=== PATIENT | female | born 1945 | race Caucasian/White ===

== ENCOUNTER 2020-12-21 12:59 | Outpatient (CLI) | payer OTHER, MEDICARE, SELFPAY | END 2020-12-21 13:00 | disposition home or self-care (01) | LOC: ANHCOVIDVC 13:00 | PROVIDERS: PCP Family Medicine | DX: Z23 Encounter for immunization (principal) | CPT/HCPCS: 0001A; 91300 ==

== ENCOUNTER 2021-01-11 13:03 | Outpatient (CLI) | payer OTHER, MEDICARE, SELFPAY | END 2021-01-11 13:04 | disposition home or self-care (01) | LOC: ANHCOVIDVC 13:03 | PROVIDERS: PCP Family Medicine | DX: Z23 Encounter for immunization (principal) | CPT/HCPCS: 0002A; 91300 ==

== ENCOUNTER 2021-04-23 01:02 | Day surgery (SDC) | payer OTHER, SELFPAY ==
[2021-04-02 12:14] VITALS: BMI 31.9
[2021-04-23 08:17] VITALS: BP 154/83; PULSE 64; RESP 20; TEMP 36.4; O2SAT 99; BMI 32.5
--- NOTE | 2021-04-23 08:22 | WPDANESEPPF ---
Anes - Initial Pre Proc Eval Procedure: Operation Date: 04/23/21 09:00 Proposed Procedures p Esophagogastroduodenoscopy - Jason Servin MD Date/Time: 04/23/21 08:22 Surgeon: Jason Servin MD Pre Op Diagnosis: eipgastric pain Patient Data Age: 75 Gender: F Height: 1.6 m Weight: 83.2 kg Last Vital Signs Temp 36.4 C L 04/23/21 08:17 Pulse 64 04/23/21 08:17 Resp 20 04/23/21 08:17 BP 154/83 H 04/23/21 08:17 Pulse Ox 99 04/23/21 08:17 Allergies Allergy/AdvReac Type Severity Reaction Status Date / Time No Known Allergies Allergy Mild Verified 04/23/21 08:09 Home Medications Medication Instructions Recorded Confirmed Type budesonide-formoterol HFA 160 2 puff INHALATION Q12H 09/23/19 04/03/21 History mcg-4.5 mcg/actuation aerosol inhaler ipratropium 0.5 mg-albuterol 3 mg 3 ml INHALATION Q6H PRN 09/23/19 04/03/21 History (2.5 mg base)/3 mL nebulization soln albuterol sulfate 90 mcg/actuation 1 inhalation INHALATION Q4H PRN 02/23/20 04/03/21 Rx aerosol inhaler #8.5 gm losartan 100 mg tablet 100 mg PO DAILY #90 tablet 11/27/20 04/03/21 Rx chlorthalidone 25 mg tablet See Rx Instructions .ROUTE 12/01/20 04/03/21 Rx .COMPLEX #45 tablet levothyroxine 75 mcg tablet See Rx Instructions .ROUTE 02/05/21 04/03/21 Rx .COMPLEX #90 tablet pantoprazole 20 mg tablet,delayed 20 mg PO QAM #90 tablet 02/21/21 04/03/21 Rx release citalopram [Celexa] 40 mg PO DAILY 04/02/21 04/03/21 History Patient hx anesthesia problems: none Family hx anesthesia problems: none PMFSH Past Medical History Medical History Mixed hyperlipidemia Surgical History Surgical History (Updated 04/23/21 @ 08:22 by Jovanny White MD) History of cholecystectomy History of esophagogastroduodenoscopy (EGD) Family History Family History Father Hypertension Family history of chronic obstructive pulmonary disease Family history of coronary artery disease Family history of cardiovascular disease Family history of emphysema Mother Hypertension Family history of chronic obstructive pulmonary disease Family history of coronary artery disease Social History Social History Smoking status: Never smoker Second hand tobacco smoke exposure: No Alcohol intake: never Substance use: never Substance use type: does not use Living arrangements: with family Gender identity (if verbalized by the patient): Female Spiritual care concerns: No Anes - Eval Final PreProcedure Day of Procedure 04/23/21 08:22 Patient weight: obese Heart: regular rate and rhythm Lungs: clear to auscultation Airway: Mallampati scale class II Neurological: alert and oriented Last oral intake: >/= 8 hours ASA classification: III Emergent: no Anesthetic plan: proceed Anesthesia type and monitoring: general GIVS and standard monitoring Informed Consent: The patient's anesthetic plan and its attendant risks and benefits were discussed with the patient/family/POA. Questions were solicited and answers provided to the satisfaction of the patient/family/POA.
[2021-04-23] MEDS: LACTATED RINGERS 1,000 ML 150 ML IV CONT (08:43)
--- NOTE | 2021-04-23 08:54 | WPDGICN ---
Assessment and Plan Assessment and plan (1) Epigastric abdominal pain: Code(s): R10.13 - Epigastric pain Status: Acute Assessment and Plan: Patient presents today because of epigastric pain. Review of records reveals a gastric ulcer in 2018. Plan is for EGD to assess more thoroughly. Patient will be maintained on pantoprazole in the interval time period patient also reports a history of hiatal hernia and Schatzki's ring although has no difficulty with substernal pain and no dysphagia. (2) GERD (gastroesophageal reflux disease): Code(s): K21.9 - Gastro-esophageal reflux disease without esophagitis Status: Acute Assessment and Plan: Patient is felt to have underlying acid reflux disease. Long-term anti-reflux measures and pantoprazole suggested. Further recommendations may be given after endoscopy. (3) Constipation: Code(s): K59.00 - Constipation, unspecified Status: Acute Assessment and Plan: Patient reports difficulty with her bowel habits. CT colonography several years ago was unremarkable. Plan is for stool softeners and or laxatives because she states this makes her epigastric pain improved. Perhaps milk a magnesia twice a week in daily Metamucil may be of some benefit. GI Consult Note Consult date/time: 04/23/21 08:54 HPI: Ariane Quick is a 75 year old female Presents because a complains of epigastric pain. Patient states for several years at least 3 years she complains of epigastric bloating and pressure. She has been maintained on pantoprazole with no change in symptoms. She states symptoms do improve on taking milk of magnesia. She states that she tends to be constipated. Milk of magnesia helps her have a bowel movement. This tends to improve the pressure. Previously followed by Dr. Corral. Review of old records reveals that she had a gastric ulcer in 2019. She has had colonoscopy in [address] colonography in 2018 was unremarkable. Patient states that colonoscopy was difficult because of scar tissue after prior open cholecystectomy. Patient denies any blood in her stools. She denies any weight loss. She denies any burning with her epigastric pain. She has no difficulty swallowing. She reports in the past she was told she had a hiatal hernia and Schatzki's ring. Family history is noncontributory. Because of ongoing epigastric pain an EGD is requested. Review of Systems Review of Systems: All systems reviewed & are unremarkable except as noted in HPI and below PMFSH Past Medical History Medical History (Updated 04/23/21 @ 08:56 by Jason Servin MD) Mixed hyperlipidemia Surgical History Surgical History (Updated 04/23/21 @ 08:22 by Jovanny White MD) History of cholecystectomy History of esophagogastroduodenoscopy (EGD) Family History Family History Father Hypertension Family history of chronic obstructive pulmonary disease Family history of coronary artery disease Family history of cardiovascular disease Family history of emphysema Mother Hypertension Family history of chronic obstructive pulmonary disease Family history of coronary artery disease Social History Social History Smoking status: Never smoker Second hand tobacco smoke exposure: No Alcohol intake: never Substance use: never Substance use type: does not use Living arrangements: with family Gender identity (if verbalized by the patient): Female Spiritual care concerns: No Meds Home Medications and Allergies Home Medications Medication Instructions Recorded Confirmed Type budesonide-formoterol HFA 160 2 puff INHALATION Q12H 09/23/19 04/03/21 History mcg-4.5 mcg/actuation aerosol inhaler ipratropium 0.5 mg-albuterol 3 mg 3 ml INHALATION Q6H PRN 09/23/19 04/03/21 History
[2021-04-23] MEDS: BENZOCAINE (*SP) 60 ML SPRAY CAN (HURRICAINE) 1 SPRAY MUCOUS MEM (09:05)
[2021-04-23 09:17] VITALS: BP 131/73; PULSE 60; RESP 18; O2SAT 96
[2021-04-23 09:27] VITALS: BP 136/81; PULSE 62; RESP 18; O2SAT 97
[2021-04-23 09:37] VITALS: BP 149/94; PULSE 64; RESP 18; O2SAT 98
== END 2021-04-23 09:41 | disposition home or self-care (01) ==
PROVIDERS: PCP Family Medicine; Visit Provider Internal Medicine Gastroenterology
PROC: 0DJ08ZZ Inspection of Upper Intestinal Tract, Via Natural or Artificial Opening Endoscopic (ICD-10-PCS; CPT 43235; principal; 2021-04-23 09:00)
DX: R10.13 Epigastric pain (principal); K44.9 Diaphragmatic hernia without obstruction or gangrene; K21.9 Gastro-esophageal reflux disease without esophagitis; K59.00 Constipation, unspecified; E78.2 Mixed hyperlipidemia; E03.9 Hypothyroidism, unspecified; Z79.51 Long term (current) use of inhaled steroids; E66.9 Obesity, unspecified; Z68.32 Body mass index [BMI] 32.0-32.9, adult
CPT/HCPCS: 43239; 87081; J2704; J7120

== ENCOUNTER 2022-01-07 07:05 | Outpatient (CLI) | payer OTHER, SELFPAY ==
--- NOTE | ~2022-01-07 | MM_ITS ---
EXAMINATION: MM screening [facility] w [facility] HISTORY: Screening mammogram TECHNIQUE: Craniocaudal and mediolateral oblique 3-D tomosynthesis images were obtained and synthetic 2-D images were generated. CAD analysis was submitted and interpreted. COMPARISON: 10/01/2019, 05/02/2017 BREAST PARENCHYMAL COMPOSITION: The breasts are almost entirely fatty. FINDINGS: There is no suspicious mass, calcification, or architectural distortion to suggest malignan cy in either breast. There has been no suspicious interval change. IMPRESSION: 1. No mammographic evidence of malignancy. 2. Recommend routine screening mammography in one year. BI-RADS Category 1: Negative Reviewed, dictated and finalized at location A.
== END 2022-01-07 07:06 | disposition home or self-care (01) ==
PROVIDERS: PCP Family Medicine; Visit Provider Family Medicine
DX: Z12.31 Encounter for screening mammogram for malignant neoplasm of breast (principal)
CPT/HCPCS: 77063; 77067

== ENCOUNTER 2023-08-27 08:34 | Outpatient (CLI) | payer OTHER, SELFPAY ==
--- NOTE | ~2023-08-27 | MM_ITS ---
EXAMINATION: MM screening [facility] BI w erlin HISTORY: Screening mammogram TECHNIQUE: Craniocaudal and mediolateral oblique 3-D tomosynthesis images were obtained and synthetic 2-D images were generated. CAD analysis was submitted and interpreted. COMPARISON: 01/07/2022, 10/01/2019, 05/02/2017 BREAST PARENCHYMAL COMPOSITION: The breasts are almost entirely fatty. FINDINGS: No suspicious mass, calcification, or architectural distortion are identified in either kiana ast to suggest malignancy. There has been no suspicious interval change. IMPRESSION: 1. No mammographic evidence of malignancy. 2. Recommend routine screening mammography in one year. BI-RADS Category 1: Negative Reviewed, dictated and finalized at location A. [facility] COURT CLERK
== END 2023-08-27 08:35 | disposition home or self-care (01) ==
LOC: ANHIMG 08:37
PROVIDERS: PCP Family Medicine; Visit Provider Family Medicine
DX: Z12.31 Encounter for screening mammogram for malignant neoplasm of breast (principal)
CPT/HCPCS: 77063; 77067

== ENCOUNTER 2024-08-18 10:13 | Outpatient (CLI) | payer OTHER, SELFPAY ==
[2024-08-18 11:17] LABS: Influenza A QL RT-PCR Negative (Negative); Influenza B QL RT-PCR Negative (Negative); RSV RNA, RT-PCR Negative (Negative); SARS-CoV-2 RNA PCR Negative (Negative)
== END 2024-08-18 10:14 | disposition home or self-care (01) ==
LOC: ANHLAB 10:15
PROVIDERS: PCP Family Medicine; Visit Provider Family Medicine
DX: J84.9 Interstitial pulmonary disease, unspecified (principal); Z20.822 Contact with and (suspected) exposure to COVID-19
CPT/HCPCS: 87637

== ENCOUNTER 2024-08-19 16:40 | Outpatient (CLI) | payer OTHER, SELFPAY ==
--- NOTE | ~2024-08-19 | XR_ITS ---
XR chest 2V 08/19/2024 17:01 Indication: Cough Procedure: 2 view chest Comparison: Comparison to multiple prior studies sequentially, with oldest reviewed study dated 05/11. Findings: There is been progression of coarse reticular opacities bilaterally primarily involving the periphery, consistent with chronic interstitial fibrosis. No pleural effusion. No acute focal pneumo jorge, edema or effusion. There is apical pleural thickening. Impression: 1: Interval progression of chronic interstitial fibrosis. Reviewed, dictated and finalized at location B. [employer] Impression: 1: Interval progression of chronic interstitial fibrosis.
== END 2024-08-19 16:41 | disposition home or self-care (01) ==
PROVIDERS: PCP Family Medicine; Visit Provider Physician Assistant Medical
DX: J84.9 Interstitial pulmonary disease, unspecified (principal); J06.9 Acute upper respiratory infection, unspecified
CPT/HCPCS: 71046

== ENCOUNTER 2024-10-13 09:27 | Emergency (ER) | payer OTHER, SELFPAY ==
--- OUTSIDE RECORDS SUMMARY | 2024-10-20 04:48 | XMS_ITS | Clinical Summary ---
Author Organization [facility] Care Team Providers Care Deputy Sheriff K9 Handler Name Role Phone Unavailable Primary Care Provider Unavailabl e Social History Tobacco Use Types Packs/Day Years Used Date Smoking Tobacco: Never Assessed Comments Unknown Sex and Gender Information Value Date Recorded Sex Assigned at Not on file Legal Sex Female 7:34 PM CDT Gender Identity Not on file Sexual Orientation Not on file Plan of Treatment Not on file
--- OUTSIDE RECORDS SUMMARY | 2024-10-20 04:48 | XMS_ITS | Continuity of Care Document ---
Author Organization [facility] Address [address] [place] [address] [place] [address] Phone Care Team Providers Care Vp Talent Management Name Role Phone Samantha Horton Unavailable Unavailable Procedures Procedure Date Office/outpatient Visit, Est Office/outpatient Visit, Est Eye Exam Established Pt Eye Exam Established Pt Office/outpatient Visit, Est Office/outpatient Visit, Est Eye Exam, New Patient Advance Directives Directive Yes / No Effective Date File Name No Information Encounters Encounter Description Practice Location Reason(s) For Visit Diagnoses Date Provider Providers Copied on Encounter [place]pat [place] [facility] [place] [address] [place] [address] [address], [place], [place], [id number], [place] tel:[phone] [facility] No Information 0-201 0 Sol Denise [address] , [address], [place], [place], [facility], [place]. tel:[phone] Office/outpat ient Visit, [facility], [address] [place] [address] [address], [place], [place], [id number], [place] tel:[phone] [facility] [place] No Information 7-201 0 Sol Denise [address] , [address], [place], [address], [place]. tel:[phone] [facility], [address] [place] [address] [address], [place], [place], [id number], [place] tel:[phone] [facility] No Information May-2 0-201 0 Horton Samantha. [address], [place], [address], [place]. tel:[phone] [facility], [address], [place], [place], [id number], [place] tel:[phone] [facility] No Information May-1 3-201 0 Horton Samantha. [address], [place], [address], [place]. tel:[phone] Referring Provider: Davon Fagan MD, [address], [place], [place], [facility]. tel:[phone] Office/outpat ient Visit, [facility], [id number] [place] [address] [address], [place], [place], [id number], [place] tel:[phone] [facility] No Information Apr-2 1-200 8 Krishnasamy Brennan. [address] [facility] [address], [place], [place], [facility], [place]. tel:[phone] Office/outpat ient Visit, [facility], [id number] [place] [address] [address], [place], [place], [id number], [place] tel:[phone] [facility] No Information Mar-3 1-200 8 Krishnasamy Brennan. [address] [facility] [address], [place], [place], [facility], [place]. tel:[phone] [facility], [address], [place], [place], [id number], [place] tel:[phone] [facility] No Information Mar-1 0-200 8 Krishnasamy Brennan. [address] [facility] [address], [place], [place], [facility], [place]. tel:[phone] Family History Family Member Type Diagnosis Age At Onset No Information Payers Payer name Insurance type Covered democrat ID Authoriza tibrennon(s) [employer] Claims [id number] Written Refer ral Social History Type Description Quantity Date Captured Comments Sex Female Smoking Status No Information Chief Complaint And Reason For Visit No Information Reason For Referral Reason For Referral No Information History Of Present Illness Encounter Date Complaint History Of Prese nt Illness No Information Functional Status Date Functional Assessmen t No Information Instructions Date Instruction Additional Infor mation No Information Assessments Type Assessment Date No Information Patient Care Teams Name Effective Dates (start - stop) Status Members No Information
--- OUTSIDE RECORDS SUMMARY | 2024-10-20 04:48 | XMS_ITS ---
Author Organization [facility] Address [address] [facility] [address] [place] [address] Care Team Providers Care Pickling Grader Name Role Phone Davon Fagan MD Primary Care Provider UnavailMartha Byrd Unavailable [phone] Natalie Kim Unavailable [phone] REASON FOR VISIT I am feeling better Medications Medication SIG (Take, Route, Frequency, Duration) Notes Start Date End Date Status busPIRone HCl 15 MG 1 tablet Oral Twice a day for 90 days Active ARIPiprazole 2 MG 1 tablet Oral Once a day for 30 days 08/03/2024 Active Pantoprazole Sodium 40 MG TAKE 1 TABLET BY MOUTH EVERY MORNING Oral for 90 Days Active Budesonide-Formoterol Fumarate 160-4.5 MCG/ACT Inhalation for 90 Days Active Levothyroxine Sodium 75 MCG Oral for 90 Days Active Losartan Potassium 100 MG TAKE 1 TABLET BY MOUTH EVERY DAY Oral for 90 Days Active Chlorthalidone 25 MG 1 tablet in the mor joseph with food Orally Active DULoxetine HCl 60 MG 1 capsule Orally On ce a day for 90 days Active Social History Tobacco Use: Social History Observation Description Date Details (start date - stop date) Never Smoker NA - NA Sex Assigned At : Social History Observation Description Sex Assigned At Female Tobacco Control (Standard) Question Answer Notes Tobacco use: Nonsmoker Section Notes: Live in [place], in a h ouse with of 61 yrs. 2 grown children. Grew up [place], 3 siblings, she is oldest. 1 brother is alive. Education/employment: bachelors in theology. 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 Very involved in baptism-cheondoism, grew up Pentacostal. 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 Patient is currently not taking Abilify as prescribed. - Plan: - Educated the patient on the benefits of Abilify for mood stabilization and preventing hypomanic episodes. - Encourage the patient to contact neuro psych sales specialist about how/when to start medications. Anxiety and Jealousy - Assessment: Patient expresses concerns about her 's interactions with other women and feeling insecure in her relationship. - Plan: - Validation provided through active listening Social Support and Coping Strategies - Assessment: Patient reports having a strong support system, including friends and family, and engaging in activities such as reading, Bible study, and crafting. - Plan: - Encourage the patient to continue utilizing her support system and engaging in activities that promote positive mental health. Each plan component addresses specific issues identified during the assessment, focusing on practical strategies to improve the patient's mental health and overall well-being. 09/28/2024 Generalized anxiety disorder (ICD-10 - F41.1) Hypomania - Assessment: Patient reports feeling normal and content at the moment, but acknowledges a history of excessive talking and high energy levels. Patient is currently not taking Abilify as prescribed. - Plan: - Educated the patient on the benefits of Abilify for mood stabilization and preventing hypomanic episodes. - Encourage the patient to contact neuro psych sales specialist about how/when to start medications. Anxiety and Jealousy - Assessment: Patient expresses concerns about her 's interactions with other women and feeling insecure in her relationship. - Plan: - Validation provided through active listening Social Support and Coping Strategies - Assessment: Patient reports having a strong support system, including friends and family, and engaging in activities such as reading, Bible study, and crafting. - Plan: - Encourage the patient to continue utilizing her support system and engaging in activities that promote positive mental health. Each plan component addresses specific issues identified during the assessment, focusing on practical strategies to improve the patient's mental health and overall well-being. 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 Patient is currently not taking Abilify as prescribed. - Plan: - Educated the patient on the benefits of Abilify for mood stabilization and preventing hypomanic episodes. - Encourage the patient to contact neuro psych sales specialist about how/when to start medications. Anxiety and Jealousy - Assessment: Patient expresses concerns about her 's interactions with other women and feeling insecure in her relationship. - Plan: - Validation provided through active listening Social Support and Coping Strategies - Assessment: Patient reports having a strong support system, including friends and family, and engaging in activities such as reading, Bible study, and crafting. - Plan: - Encourage the patient to continue utilizing her support system and engaging in activities that promote positive mental health. Each plan component addresses specific issues identified during the assessment, focusing on practical strategies to improve the patient's mental health and overall well-being. Plan Of Treatment Next Appt Details Follow Up: 2 Weeks, Reason: Provider Name:Martha Zhongpedro haley, 11/15/2024 01:15:00 PM, [address] [address], [facility] [address], [place], [address], Progress Notes * Ariane SALAZAR TDOB: [birth year] (79 yo F)Acc No.[id number]:09/28/2024 Patient:?ABDELRAHMANAngelaAriane T Provider:?NATALIE BUTLER LCSW :1945???Age:79 Y???Sex:Female D ate:09/28/2024 Address:[address] [place] [address] Pcp:Davon Fagan MD Data: * Time Tracker: * Date Start Time End Time Duration User Type Captured By Mode Notes 09/28/2024 01:07 PM 01:51 PM 00:44:00 Therapist Arlin Kim Manual * Chief Complaints: * ???1. I am feeling better . * HPI: ???Functional Status:? Diamond has not started her prescribed Abilify or Buspar. Celexa is helping . The patient mentions feeling 'normal' and 'very happy and content' currently. Regarding her personal life, the patient indicates a complex family dynamic and recent interpersonal stresses, including concerns about her relationships influenced by her need to be tyree one talking and making sure everyone else is okay. She expresses a strong connection to her christianity jennifer and community, which she feels supports her well-being. The patient also mentions reading literature that helps her cope with her mental health. The patient's narrative suggests a history of hypomania, as indicated by her self-reported energy levels and ability to manage multiple tasks, which she compares to others her age. She denies any current severe manic or depressive episodes. This note is transcribed using speech recognition software. It is an accurate representation of the visit with the patient. Efforts have been made to correct errors, but some inaccuracies might still be present. * Behavioral History: ???Past psychiatric Hospitalization:No.?History of suicidal attempt?:No.? * Family History:?Father: depr ession when older.?Sister: .?1 brother(s) , 2 sister(s) . 1 son(s) , 1 daughter(s) . .? Brother is 10 years younger.? Son is a area intelligence technician, out of state.? One sister passed at 12 years old (Leukemia?) and one sister passed recently. They were much younger, not raised together. * Social History:?Tobacco Use:?Tobacco Control (Standard)?Tobacco use:?Nonsmoker.?Live in [place], in a house with of 61 yrs.?2 grown children. Grew up [place], 3 siblings, she is oldest. 1 brother is alive. Education/employment: bachelors in theology. 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 Very involved in baptism-cheondoism, grew up Pentacostal. * Medications:?Taking Chlortha lidone 25 MG Tablet 1 tablet in the morning with food Orally , Taking Losartan Potassium 100 MG Tablet TAKE 1 TABLET BY MOUTH EVERY DAY Oral , Taking Levothyroxine Sodium 75 MCG Tablet Oral , Taking Budesonide- Formoterol Fumarate 160-4.5 MCG/ACT Aerosol Inhalation , Taking Pantoprazole Sodium 40 MG Tablet Delayed Release TAKE 1 TABLET BY MOUTH EVERY MORNING Oral , Taking ARIPiprazole 2 MG Tablet 1 tablet Oral Once a day , Taking busPIRone HCl 15 MG Tablet 1 tablet Oral Twice a day , Taking DULoxetine HCl 60 MG Capsule Delayed Release Particles 1 capsule Orally Once a day , Medication List reviewed and reconciled with the patient * Examination: ???General Examination: ???- Mental Status Examination: - Patient exhibited signs of hypomania, characterized by increased talkativeness and a high level of energy. - Expressed feelings of contentment and normalcy during the visit. - Reported feelings of loneliness and a desire for more social interaction. - Acknowledged not taking prescribed medications, including Abilify and BuSpar. 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 Hypomania- Assessment: Patie nt reports feeling normal and content at the moment, but acknowledges a history of excessive talking and high energy levels. Patient is currently not taking Abilify as prescribed.- Plan:- Educated the patient on the benefits of Abilify for mood stabilization and preventing hypomanic episodes.- Encourage the patient to contact neuro psych sales specialist about how/when to start medications.Anxiety and Jealousy- Assessment: Patient expresses concerns about her 's interactions with other women and feeling insecure in her relationship.- Plan:- Validation provided through active listeningSocial Support and Coping Strategies- Assessment: Patient reports having a strong support system, including friends and family, and engaging in activities such as reading, Bible study, and crafting.- Plan:- Encourage the patient to continue utilizing her support system and engaging in activities that promote positive mental health.Each plan component addresses specific issues identified during the assessment, focusing on practical strategies to improve the patient's mental health and overall well-being. Plan: * Behavioral Health Treatment Plan: ???Imported Date:09/28/2024 01:36 PM??Imported By:Natalie Kim???Therapy ServicesStrengthsRelationships, such as having family or friends who support the patient.Personal traits, such as having a positive attitudeGood social supportAccess to community resources, such as knowing where to go for help with a health problem.Self-awareness of weakness, barrier, and triggersBarriersStigma: Negative attitudes and prejudices that can lead to discrimination and prevent people from seeking treatmentFear: Fear of being viewed negatively by friends and family, fear of appearing weak, or fear of unfamiliar conditionsProblem/Goal/Objective/InterventionGroup1: Older Adult 2eProblem 1:Loneliness/Interpersonal DeficitsICDMajor depressive disorder, recurrent, mildGeneralized anxiety disorderBehavioral DefinitionDepressed mood associated with inadequate social connection with .Complaints of loneliness, being all alone, being ignored by family members ().GoalResolve depression associated with inadequate social relationships. Progress Start Date Target Date Assigned To Priority Statu s 0% 0 Open Objective* Assess whether limited relationships are associated with depression. Progress Start Date Target Date Assigned To Status 0% Open * Describe significant past relationships with others. Progress Start Date Target Date Assigned To Status 0% Open * Describe current relationships with family, friends, acquaintances, and others. Progress Start Date Target Date Assigned To Status 0% Open Intervention* Help the client to appraise whether newly acquired social skills and expanded interpersonal connections are sufficient, or whether further support is necessary. Start Date Target Date Assigned To Status Open * Use discussion of past and current relationships to assist the client to determine the likely causeof inadequate current relationships (i.e., is it a lifelong pattern or the result of a result life changes?). Start Date Target Date Assigned To Status Open * Ask the client about the nature of current interactions, expectations about current relationships and their fulfillment or lack of fulfillment, satisfactions/dissatisfactions with current relationships, and what the client would like to be different. Start Date Target Date Assigned To Status Open * Treatment: * Procedure Codes:?10797 PSYCH OTHERAPY W/PATIENT 45 MINUTES * Follow Up:?2 Weeks * Billing Information: * Visit Code:? * Procedure Codes:? 74877 PSYCHOTHERAPY W/PATIENT 45 MINUTES. * HAULER Sign off status: Completed Signatures: No Ad Hoc Signature Added true * Provider:?NATALIE BUTLER LCSW Raul e:?09/28/2024 Generated for Layla davis/Anthony/Jefferson on:?10/20/2024 04:48 AM COAL HAULER
--- OUTSIDE RECORDS SUMMARY | 2024-10-20 04:48 | XMS_ITS | Encounter Summary ---
Author Organization [facility] Address [address] [place] [address] Care Team Providers Care Pot Puller Name Role Phone Davon Fagan MD Primary Care Provider [phone] Reason for Visit * Reason Comments Cough Encounter Details Date Type Department Care Team (Late st Contact Info) Description 12/18/2019 11:00 AM YOUTH MANAGER Office Visit [facility] AT [address] [address] Provider, [facility] Exp Nameoki Lower respiratory tract infection (Primary Dx) Social History Tobacco Use Types Packs/Day Years Used Date Smoking Tobacco: Passive Smo ke Exposure - Never Smoker Smokeless Tobacco: Never Sex and Gender Information Value Date Recorded Sex Assigned at Not on file Gender Identity Not on file Sexual Orientation Not on file documented as of this encounter Last Filed Vital Signs Vital Sign Reading Time Taken Comments Blood Pressure 106/62 12/18/2019 10:59 AM YOUTH MANAGER Pulse 81 12/18/2019 10:59 AM YOUTH MANAGER Temperature 37.3 ??C (99.1 ??F) 12/18/2019 10:[address] Respiratory Rate 17 12/18/2019 10:59 AM YOUTH MANAGER Oxygen Saturation 95% 12/18/2019 10:59 AM YOUTH MANAGER Inhaled Oxygen Concentration - - Weight 81.6 kg (180 lb) 12/18/2019 10:59 AM YOUTH MANAGER Height 160 cm (5' 3 ) 12/18/2019 10:59 AM YOUTH MANAGER Body Mass Index 31.89 12/18/2019 10:59 AM YOUTH MANAGER documented in this encounter Patient Instructions * Patient Instructions* Adina Weston, KANIKA-DIRECTOR OF AGRONOMY - 12/18/2019 11:18 AM YOUTH MANAGER Images from the original note were not included. Use your inhaler every 4 hours as needed for cough that won't stop, wheezing, or shortness of breath. If inhaler is needed more often, you need to go to an ER. Tylenol as needed for fever or pain. Mucinex to promote cough. Delsym or Robitussin to suppress cough (only recommended if cough is interfering with your daily activities or sleep) Humidified air to home Avoid irritants such as cigarette smoke, pollen, dust, etc as this will aggravate bronchitis. Follow up with Davon Fagan MD if symptoms worsen or do not completely resolve If your symptoms start to improve, then worsen again, please follow up with your PCP, Urgent Care, or ER for further evaluation. CALL 911 OR GO TO ER WITH ANY WORSENING OF SYMPTOMS INCLUDING, BUT NOT LIMITED TO: HIGH FEVERS, DIFFICULTY BREATHING OR CATCHING YOUR BREATH, INCREASED WORK OF BREATHING, OR SHORTNESS OF BREATH. Patient Education Chronic Lung Disease and Infection Prevention WHAT YOU NEED TO KNOW: Why is preventing infections important when you have a chronic lung condition? When you a have a chronic lung condition, infections such as a cold or the flu, may become serious. These infections cancause more damage to your lungs. One episode of pneumonia puts you at risk to have more respiratoryinfections in the future. How can I prevent respiratory infections? ?? Wash your hands. This is the most important thing you can do to prevent infection. Wash your hands several times each day. Encourage everyone in your house to wash their hands with soap and water after they use the bathroom. Everyone should also wash their hands after they change a child's diaper and before they prepare or eat food. ? After you wash your hands, gently rub them dry with a clean towel or paper towel. Hold a paper towel in your hand while you turn off the water tap. When you leave the bathroom, hold a paper towel in your hand as you touch the door handle. ? Use an alcohol-based hand rub for cleaning your hands if there is no water. Carry it with you when you leave the house. Before using a hand rub, wipe dirt off of your hands as much as you can. Yourhands should be dry before you use hand rub. Rub your hands together until all of the liquid has dried. ?? Avoid crowds during flu season. Flu season is from late July to the middle of December. Do not have close contact with someone who is sick. Stay 3 to 6 feet away from people when you are in public. Ask friends and family to visit only when they are not sick. ?? Get vaccinated. Flu and pneumonia vaccines can help prevent infection. Ask your healthcare provider for more information about vaccines. ?? Cover your mouth when you cough or sneeze. Wash and dry your hands after each cough or sneeze. ?? Do not smoke. If you smoke, it is never too late to quit. Ask for information if you need help quitting. ?? Build resistance to infection. Eat a variety of healthy foods such as fruits, vegetables, and whole-grain foods. Choose dairy foods, meat, and other protein foods that are low in fat. Get plenty of sleep and physical activity. Work with your healthcare provider to develop an exercise plan that is right for you. ?? Protect your mouth from germs that lead to infection. [place] your teeth at least 2 times per day.See your dentist at least every 6 months. CARE AGREEMENT: You have the right to help plan your care. Learn about your health condition and how it may be treated. Discuss treatment options with your healthcare providers to decide what care you want to receive. You always have the right to refuse treatment. The above information is an community aide only. It is not intended as medical advice for individual conditions or treatments. Talk to your doctor, nurse or pharmacist before following any medical regimen to see if it is safe and effective for you. ?? Copyright [employer] 2019 Information is for End User's use only and may not be sold, redistributed or otherwise used for commercial purposes. All illustrations and images included in CareNotes?? are the copyrighted property of [employer], [employer]. or [employer] H MANAGER documented in this encounter Progress Notes * Adina Weston APRN-CNP - 12/18/2019 11:00 AM CST Images from the original note were not included. Subjective: Ariane Quick is a 74 year old female who presents to clinic today for Chief Complaint Patient presents with ??? Cough . Ariane Quick is here for evaluation of sore throat, congestion, post nasal drip, bilateral ear pressure/pain, sinus pressure, non productive cough, headache. PCP is Davon Fagan MD. She states the Onset was: 2 months and course is gradually worsening. She is drinking plenty of fluids.. Past History of asthma, allergies, and interstitial lung disease. She is a non-smoker. The sinus pain is described as aching and pressure, and is 4/10 in intensity. OTC- nasal saline irrigation. Sick Contacts: No known sick contacts. Past Medical History: Diagnosis Date ??? Allergies ??? Asthma ??? Hypertension ??? Interstitial lung disease ??? Peptic ulcer ??? Thyroid disease No family history on file. Current Outpatient Medications Medication Sig Dispense Refill ??? albuterol (PROVENTIL;VENTOLIN) (5 MG/ML) 0.5% nebulizer solution Inhale 2.5 mg by mouth 4 timesdaily as needed for Shortness of Breath or Wheezing ??? albuterol HFA (PROVENTIL;VENTOLIN;PROAIR) 108 (90 Base) MCG/ACT inhaler Inhale 2 puffs by mouthevery 6 hours as needed ??? Budesonide-Formoterol Fumarate (SYMBICORT IN) ??? Citalopram Hydrobromide (CELEXA PO) ??? doxycycline hyclate (VIBRAMYCIN) 100 MG capsule Take 1 capsule by mouth 2 times daily for 7 days 14 capsule 0 ??? LOSARTAN POTASSIUM PO ??? Other Reasons: High Blood Pressure Disorder ??? Pantoprazole Sodium (PROTONIX PO) ??? predniSONE (DELTASONE) 20 MG tablet Take 2 tablets by mouth once daily for 5 days 10 tablet 0 No current facility-administered medications for this visit. No Known Allergies Social History Socioeconomic History ??? Marital status: Spouse name: Not on file ??? Number of children: Not on file ??? Years of education: Not on file ??? Highest education level: Not on file Occupational History ??? Not on file Social Needs ??? Financial resource strain: Not on file ??? Food insecurity Worry: Not on file Inability: Not on file ??? Transportation needs Medical: Not on file Non-medical: Not on file Tobacco Use ??? Smoking status: Passive Smoke Exposure - Never Smoker ??? Smokeless tobacco: Never Used Substance and Sexual Activity ??? Alcohol use: Not on file ??? Drug use: Not on file ??? Sexual activity: Not on file Lifestyle ??? Physical activity Days per week: Not on file Minutes per session: Not on file ??? Stress: Not on file Relationships ??? Social connections Talks on phone: Not on file Gets together: Not on file Attends jainism service: Not on file Active member of club or organization: Not on file Attends meetings of clubs or organizations: Not on file Relationship status: Not on file ??? Intimate partner violence Fear of current or ex partner: Not on file Emotionally abused: Not on file Physically abused: Not on file Forced sexual activity: Not on file Other Topics Concern ??? Not on file Social History Narrative ??? Not on file Review of Systems Constitutional: Positive for fatigue, malaise Eyes: Negative Ears, nose, mouth, and throat: Positive for sinus pressure, post nasal drainage, and rhinorrhea Respiratory: Positive for shortness of breath, dyspnea on exertion, chronic cough, sputum production, asthma, wheezing, interstitial lung disease Cardiovascular: Negative Gastrointestinal: Negative Hematologic/lymphatic: Negative Objective: BP 106/62 Pulse 81 Temp 99.1 ??F (37.3 ??C) Resp 17 Ht 1.6 m (5' 3 ) Wt 81.6 kg (180 lb) SpO2 95% BMI 31.89 kg/m2 General appearance: alert, cooperative, no distress, oriented to person, place, and time Head: normocephalic, without trauma Eyes: sclera and conjunctiva clear Ears: canals clear, tympanic membranes normal, hearing intact to voice Nose: nares open; no septal deviation is noted, mucosa erythematous and swollen, clear rhinorrhea Throat: no mucous membrane abnormalities Neck: supple Nodes: mild, benign-appearing anterior cervical adenopathy Lungs: breath sounds coarse, symmetric with fair aeration; no rales. Posterior and anterior inspiratory and expiratory wheezes Heart: regular rhythm, normal S1 and S2, without murmurs, gallops or rubs Assessment: Encounter Diagnosis Name Primary? Lower respiratory tract infection Yes Plan: Use your inhaler every 4 hours as needed for cough that won't stop, wheezing, or shortness of breath. If inhaler is needed more often, you need to go to an ER. Tylenol as needed for fever or pain. Mucinex to promote cough. Delsym or Robitussin to suppress cough (only recommended if cough is interfering with your daily activities or sleep) Humidified air to home Avoid irritants such as cigarette smoke, pollen, dust, etc as this will aggravate bronchitis. Follow up with Davno Fagan MD if symptoms worsen or do not completely resolve If your symptoms start to improve, then worsen again, please follow up with your PCP, Urgent Care, or ER for further evaluation. CALL 911 OR GO TO ER WITH ANY WORSENING OF SYMPTOMS INCLUDING, BUT NOT LIMITED TO: HIGH FEVERS, DIFFICULTY BREATHING OR CATCHING YOUR BREATH, INCREASED WORK OF BREATHING, OR SHORTNESS OF BREATH. Orders Placed This Encounter ??? predniSONE (DELTASONE) 20 MG tablet Sig: Take 2 tablets by mouth once daily for 5 days Dispense: 10 tablet Refill: 0 ??? doxycycline hyclate (VIBRAMYCIN) 100 MG capsule Sig: Take 1 capsule by mouth 2 times daily for 7 days Dispense: 14 capsule Refill: 0 Adina Weston DNP, ELECTROPLATING TECHNICIAN- 12/18/2019 11:29 AM H MANAGER documented in this encounter Miscellaneous Notes * Addendum Note - Adina Weston APRN-CNP - 12/20/2019 9:39 AM CDTAddended by: ADINA WESTON. on: 12/20/2019 09:39 AM Modules accepted: Orders documented in this encounter Plan of Treatment Not on file documented as of this encounter Visit Diagnoses Diagnosis Lower respiratory tract infection- Primary Other diseases of respiratory system, not elsewhere classified documented in this encounter Care Teams Pot Puller Relationship Specialty Start Date End Date Davon Fagan MD [address] [place] [address] PCP - General 03/16/19 documented as of this encounter
--- OUTSIDE RECORDS SUMMARY | 2024-10-20 04:48 | XMS_ITS ---
Author Organization [facility] [employer] [facility] Address [facility] [facility] [address] [place] [address] Care Team Providers Care Scientific Diver Name Role Phone Davon Fagan MD Primary Care Provider Martha Garibay Unavailable [phone] REASON FOR VISIT Call Patient Social History Sex Assigned At : Social History Observation Description Sex Assigned At Female Encounters Encounter Location Date Provider Diagnosis [facility] [address] [place] [address] 09/28/2024 Martha Castillo Plan Of Treatment Next Appt Details Provider Name:Martha haley, 11/15/2024 01:15:00 PM, [address], [address], [place], [address], Progress Notes * Ariane SALAZAR TDOB: [birth year] (79 yo F)Acc No.[id number]:09/28/2024 Patient:?MARTINAngelaAriane Li :1945???Age:79 Y???Sex:Female Address:[place], [address] * true * Date:? Generated for Layla davis/Anthony/eTransmitting on:?10/20/2024 04:47 AM AIRCRAFT PAINTER APPRENTICE
--- OUTSIDE RECORDS SUMMARY | 2024-10-20 04:48 | XMS_ITS | Encounter Summary ---
Author Organization [facility] Address [address] [place] [address] Care Team Providers Care Automobile Club Membership Sales Agent Name Role Phone Davon Fagan MD Primary Care Provider Encounter Details Date Type Department Care Team (Late st Contact Info) Description 01/04/2021 Orders Only [facility] - COVID Vax [address] [place] [address] Vasu Fry MD [address] [facility] [address] [place] [address] Need for vaccination Social History Tobacco Use Types Packs/Day Years Used Date Smoking Tobacco: Passive Smo ke Exposure - Never Smoker Smokeless Tobacco: Never Sex and Gender Information Value Date Recorded Sex Assigned at Not on file Gender Identity Not on file Sexual Orientation Not on file documented as of this encounter Plan of Treatment Not on file documented as of this encounter Visit Diagnoses Diagnosis Need for vaccination Need for prophylactic vaccination and inoculation against unspecified single disease documented in this encounter Care Teams Automobile Club Membership Sales Agent Relationship Specialty Start Date End Date Davon Fagan MD [address] [place] [address] PCP - General 03/16/19 documented as of this encounter
--- OUTSIDE RECORDS SUMMARY | 2024-10-20 04:48 | XMS_ITS | Encounter Summary ---
Author Organization [facility] Address [address] [place] [address] Care Team Providers Care Blacktop Paver Operator Name Role Phone Davon Fagan MD Primary Care Provider [phone] Reason for Visit * Reason Onset Date Comments Patient Requested Call 12/24/2019 Encounter Details Date Type Department Care Team (Late st Contact Info) Description 12/24/2019 Telephone [facility] AT [address] [address] Provider, [facility] Exp Nameoki Patient Requested Call Social History Tobacco Use Types Packs/Day Years Used Date Smoking Tobacco: Passive Smo ke Exposure - Never Smoker Smokeless Tobacco: Never Sex and Gender Information Value Date Recorded Sex Assigned at Not on file Gender Identity Not on file Sexual Orientation Not on file documented as of this encounter Miscellaneous Notes * Telephone Encounter - Shannon Gregorio - 12/24/2019 9:30 AM CDT Who is calling? self What is the reason for call? Patient was seen on Friday and she stated she had to call with her insurance information. Expected Response from the Clinic? Please call her at the above noted phone number if necessary. [facility] [id number] ID [id number] GROUP # documented in this encounter Plan of Treatment Not on file documented as of this encounter Visit Diagnoses Not on filedocumented in this encounter Care Teams Blacktop Paver Operator Relationship Specialty Start Date End Date Davon Fagan MD [address] [place] [address] PCP - General 03/16/19 documented as of this encounter
--- OUTSIDE RECORDS SUMMARY | 2024-10-20 04:48 | XMS_ITS | Patient Health Summary ---
Author Organization [facility] Address [address] [place] [address] Care Team Providers Care Master Plumber Name Role Phone Davon Fagan MD Primary Care Provider [phone] Note from [facility],non-owned Affiliates and Associated Physician Practices is amultiple site organization consisting of ambulatory clinics and hospital sitesin [place], [place], [place] and [place]. This disclosure is being madepursuant to the Care Everywhere program and may not contain all information available regarding this patient. Last updated 18.[facility] Allergies No known active allergies Medications * Be aware that medications may not be up to date on this document. Alwaysverify current medications with the patient. * albuterol (PROVENTIL;VENTOLIN) (5 MG/ML) 0.5% nebulizer solution Inhale 2.5 mg by mouth 4 times daily as needed for Shortness of Breath or Wheezing * albuterol HFA (PROVENTIL;VENTOLIN;PROAIR) 108 (90 Base) MCG/ACT inhaler Inhale 2 puffs by mouth every 6 hours as needed * Citalopram Hydrobromide (CELEXA PO) * LOSARTAN POTASSIUM PO * Budesonide-Formoterol Fumarate (SYMBICORT IN) * Pantoprazole Sodium (PROTONIX PO) * CHLORTHALIDONE PO Take 12.5 mg by mouth Social History Tobacco Use Types Packs/Day Years Used Date Smoking Tobacco: Passive Smo ke Exposure - Never Smoker Smokeless Tobacco: Never Sex and Gender Information Value Date Recorded Sex Assigned at Not on file Gender Identity Not on file Sexual Orientation Not on file Last Filed Vital Signs Vital Sign Reading Time Taken Comments Blood Pressure 106/62 12/18/2019 10:59 AM DRILLER HELPER Pulse 81 12/18/2019 10:59 AM DRILLER HELPER Temperature 37.3 ??C (99.1 ??F) 12/18/2019 10:[address] Respiratory Rate 17 12/18/2019 10:59 AM DRILLER HELPER Oxygen Saturation 95% 12/18/2019 10:59 AM DRILLER HELPER Inhaled Oxygen Concentration - - Weight 81.6 kg (180 lb) 12/18/2019 10:59 AM DRILLER HELPER Height 160 cm (5' 3 ) 12/18/2019 10:59 AM DRILLER HELPER Body Mass Index 31.89 12/18/2019 10:59 AM DRILLER HELPER Care Teams Master Plumber Relationship Specialty Start Date End Date Davon Fagan MD [address] [place] [address] PCP - General 03/16/19
--- OUTSIDE RECORDS SUMMARY | 2024-10-20 04:48 | XMS_ITS | Patient Health Record ---
Author Organization [facility] Address [address] [place] [address] Care Team Providers Care Farm Rancher Name Role Phone Davon Da Silva MD Primary Care Provider Unavaila Martha Ponce Unavailable [phone] Natalie Kim Unavailable [phone] Rosa Senior Unavailable [phone] Erasto Kam Unavailable [phone] Allergies No Known Allergies Results Component Value Reference Range Notes UDT Reviewed date:04/13/2024 08:20:19 AM Interpretation: Performing Lab: Notes/Report: THC neg 0 - 50 ng/ml Cocaine neg Amphetamine neg Buprenorphine (BUP) neg Secobarbital (Bar) neg Oxazepam (BZO) pos 0-rexqksfuax-6,6-bgtpnszy-3,3-diphenylpyrrolidine (KAREEM P) neg Methamphetamine (MET) neg Methylenedioxymethamphetamine (MDMA) neg Morphine (MOP 300/RJD0954) neg Methadone (MTD) neg Phencyclidine (PCP) neg Propoxyphene (PPX) neg Nortriptyline (TCA) neg Reason For Referral Reason Eval + Treat Diagnosis 1 Major depressive dis order, single episode, unspecified (F32.9) Referring Provider First Name Davon Referring Provider Last Name Gracia QUINTANILLA Referring Provider Speciality Family Med icine Referred Organization [facility] Referred Provider Boris Andersen Referred Address [address],[place], [place],[address], Referred Provider Specialty Psychiatry Referral Priority Routine Medications Medication SIG (Take, Route, Frequency, Duration) [...] (Standard) Question Answer Notes Tobacco use: Nonsmoker AUDIT-C (Standard) Question Answer Notes Did you have a drink containing alcohol in the p ast year? No Interpretation Positive Section Notes: Live in [place], in a h ouse with of 60 yrs. 2 grown children. Grew up [place], 3 siblings, she is oldest. 1 brother is alive. Education/employment: bachelors in theology. 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 Very involved in sabianist-rastafarian, grew up [place]. Live in [place], in a h ouse with of 60 yrs. 2 grown children. Grew up [place], 3 siblings, she is oldest. 1 brother is alive. Education/employment: bachelors in theology. 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 Very involved in sabianist-rastafarian, grew up [place]. Live in [place], in a h ouse with of 60 yrs. 2 grown children. Grew up [place], 3 siblings, she is oldest. 1 brother is alive. Education/employment: bachelors in theology. 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 Very involved in sabianist-rastafarian, grew up [place]. Live in [place], in a h ouse with of 60 yrs. 2 grown children. Grew up [place], 3 siblings, she is oldest. 1 brother is alive. Education/employment: bachelors in theology. 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 Very involved in sabianist-rastafarian, grew up [place]. Live in [place], in a h ouse with of 60 yrs. 2 grown children. Grew up [place], 3 siblings, she is oldest. 1 brother is alive. Education/employment: bachelors in theology. 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 Very involved in sabianist-rastafarian, grew up [place]. Live in [place], in a h ouse with of 60 yrs. 2 grown children. Grew up [place], 3 siblings, she is oldest. 1 brother is alive. Education/employment: bachelors in theology. 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 Very involved in sabianist-rastafarian, grew up [place]. Live in [place], in a h ouse with of 60 yrs. 2 grown children. Grew up [place], 3 siblings, she is oldest. 1 brother is alive. Education/employment: bachelors in theology. 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 Very involved in sabianist-rastafarian, grew up [place]. Live in [place], in a h ouse with of 61 yrs. 2 grown children. Grew up [place], 3 siblings, she is oldest. 1 brother is alive. Education/employment: bachelors in theology. 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 Very involved in sabianist-rastafarian, grew up [place]. Live in [place], in a h ouse with of 61 yrs. 2 grown children. Grew up [place], 3 siblings, she is oldest. 1 brother is alive. Education/employment: bachelors in theology. 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 Very involved in sabianist-rastafarian, grew up [place]. Live in [place], in a h ouse with of 60 yrs. 2 grown children. Grew up [place], 3 siblings, she is oldest. 1 brother is alive. Education/employment: bachelors in theology. 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 Very involved in sabianist-rastafarian, grew up [place]. Live in [place], in a h ouse with of 60 yrs. 2 grown children. Grew up [place], 3 siblings, she is oldest. 1 brother is alive. Education/employment: bachelors in theology. 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 Very involved in sabianist-rastafarian, grew up [place]. social: see HPI Live in [place], in a h ouse with of 60 yrs. 2 grown children. Grew up [place], 3 siblings, she is oldest. 1 brother is alive. Education/employment: bachelors in theology. 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 Very involved in sabianist-rastafarian, grew up [place]. 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 Problem [id number] Severe episode of recurrent major depressive disorder, without psychotic features (F33.2) Active confirmed Problem [id number] 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) Active confirmed Problem [id number] 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 confirmed Vital Signs Heart Rate 80 /min 09/13/2024 Height-cm 160.02 cm 09/13/2024 Blood pressure diastolic 66 mm Hg 09/13/2024 Weight-kg 73.03 kg 09/13/2024 Height 63 in 09/13/2024 Blood pressure systolic 116 mm Hg 09/13/2024 Weight 161 lbs 09/13/2024 BMI 28.52 kg/m2 09/13/2024 Encounters Encounter Location Date Provider Diagnosis [facility] [address] [address] 04/08/2024 Rosa Senior Major depressive disorder, recurrent, mild F33.0 and Generalized anxiety disorder F41.1 [facility] [address] [facility] [address] [place] [address] 05/13/2024 Rosa Parrish Major depressive disorder, recurrent, mild F33.0 and Generalized anxiety disorder F41.1 [facility] [address] [facility] [address] [place] [address] 06/16/2024 Rosa Senior Major depressive disorder, recurrent, mild F33.0 and Generalized anxiety disorder F41.1 [facility] [address] [place] [address] 06/23/2024 Natalie Hsu Major depressive disorder, recurrent, mild F33.0 and Generalized anxiety disorder F41.1 [facility], [facility] [address] [place] [address] 07/16/2024 Erasto Clubb Generalized anxiety disorder F41.1 and Severe episode of recurrent major depressive disorder, without psychotic features F33.2 [facility], [facility] [address] [place] [address] 07/20/2024 Erasto Clubb Generalized anxiety disorder F41.1 [facility], [facility] [address] [place] [address] 08/03/2024 Natalie Hsu Major depressive disorder, recurrent, mild F33.0 and Generalized anxiety disorder F41.1 [facility], [facility] [address] [place] [address] 08/03/2024 Rosa Senior Moderate recurrent major depression F33.1 and Generalized anxiety disorder F41.1 [facility], [facility] [address] [place] [address] 08/17/2024 Natalie Hsu Generalized anxiety disorder F41.1 and Severe episode of recurrent major depressive disorder, without psychotic features F33.2 [facility], [facility] [address] [place] [address] 08/17/2024 Erasto Clubb Generalized anxiety disorder F41.1 ; Histrionic behavior F44.9 and Severe episode of recurrent major depressive disorder, without psychotic features F33.2 [facility], [facility] [address] [place] [address] 08/31/2024 Natalie Hsu Major depressive disorder, recurrent, mild F33.0 ; Generalized anxiety disorder F41.1 and Histrionic behavior F44.9 [facility], [facility] [address] [place] [address] 09/13/2024 Martha Castillo Major depressive disorder, recurrent, mild F33.0 ; Generalized anxiety disorder F41.1 and Histrionic personality disorder F60.4 [facility], [facility] [address] [place] [address] 09/28/2024 Natalie Gibson Shadi Major depressive disorder, recurrent, mild F33.0 ; Generalized anxiety disorder F41.1 and Histrionic personality disorder F60.4 [facility], [facility] [address] [place] [address] 05/01/[address] [facility] [address] [place] [address] 07/12/2024 Rosa Parrish [facility] [address] [facility] [address] [facility] [address] [place] [address] 08/17/2024 Martha Castillo [facility] [address] [facility] [address] [facility] [address] [place] [address] 09/28/2024 Martha Castillo Assessments Encounter Date Diagnosis (ICD Code) Assessment Notes Treatment Notes Treatment Clinical Notes Section Notes 07/20/2024 Generalized anxiety disorder (ICD-10 - F41.1) 1. Anxiety and Stress - Continue current medication regimen. - Attend therapy appointments on 08/03 - Practice healthy communication with daughter and . - Engage in self-care activities like sewing and painting. 2. Grief - Continue attending sabianist and seeking spiritual support. - Discuss grief and coping strategies in therapy. - Maintain open communication with daughter about shared loss. 3. Marital Dissatisfaction and Caregiver Stress - Discuss 's cognitive health with his PCP. - Explore caregiver support resources and respite care. - Address marital dissatisfaction in therapy and consider couples counseling. - Concerns about 's limited diet and potential anger issues. 4. Daughter's New Relationship - Maintain healthy boundaries and communication with daughter. - Discuss concerns about daughter's partner in therapy. - Support daughter's autonomy while keeping emotional distance. - Advise against blocking communication, promote open dialogue. 07/16/2024 Generalized anxiety disorder (ICD-10 - F41.1) 1. Interpersonal Conflicts and Family Stressors - Patient reports conflicts with daughter, , feeling shut out from daughter's life, disapproval of daughter's boyfriend, and dissatisfaction with relationship with . - Plan: a. Write letter to daughter focusing on relationship, avoiding boyfriend mention. b. Maintain cordial but distant relationship with daughter's boyfriend in social settings. c. Discuss concerns about 's potential dementia with his PCP. 2. Depression - Patient reports depression score 10/10, currently on duloxetine 30mg and buspirone. - Plan: a. Increase duloxetine to 60mg daily from 40mg. b. Monitor for improvement in depressive symptoms. c. Follow-up in 1 month to assess medication adjustment. 3. Anxiety - Patient reports anxiety score 10/10, currently on buspirone 10mg BID. - Plan: a. Increase buspirone to 15mg BID. b. Monitor for improvement in anxiety symptoms. c. Follow-up in 1 month to assess medication adjustment. 4. Grief and Loss - Patient reports deaths of sister, mother, son-in-law, grandson contributing to depression/anxiet y. - Plan: a. Encourage grief counseling or support groups. b. Continue monitoring mental health. 5. Social Support and Hobbies - Patient enjoyed jewelry making, painting, desires reconnecting with daughter's grandson. - Plan: a. Re-engage in enjoyable hobbies and activities for nabeel/support. b. Explore maintaining relationship with grandson within boundaries. 07/16/2024 Severe episode of recurrent major depressive disorder, without psychotic features (ICD-10 - F33.2) 1. Interpersonal Conflicts and Family Stressors - Patient reports conflicts with daughter, , feeling shut out from daughter's life, disapproval of daughter's boyfriend, and dissatisfaction with relationship with . - Plan: a. Write letter to daughter focusing on relationship, avoiding boyfriend mention. b. Maintain cordial but distant relationship with daughter's boyfriend in social settings. c. Discuss concerns about 's potential dementia with his PCP. 2. Depression - Patient reports depression score 10/10, currently on duloxetine 30mg and buspirone. - Plan: a. Increase duloxetine to 60mg daily from 40mg. b. Monitor for improvement in depressive symptoms. c. Follow-up in 1 month to assess medication adjustment. 3. Anxiety - Patient reports anxiety score 10/10, currently on buspirone 10mg BID. - Plan: a. Increase buspirone to 15mg BID. b. Monitor for improvement in anxiety symptoms. c. Follow-up in 1 month to assess medication adjustment. 4. Grief and Loss - Patient reports deaths of sister, mother, son-in-law, grandson contributing to depression/anxiet y. - Plan: a. Encourage grief counseling or support groups. b. Continue monitoring mental health. 5. Social Support and Hobbies - Patient enjoyed jewelry making, painting, desires reconnecting with daughter's grandson. - Plan: a. Re-engage in enjoyable hobbies and activities for nabeel/support. b. Explore maintaining relationship with grandson within boundaries. 08/03/2024 Moderate recurrent major depression (ICD-10 - F33.1) moderate start abilify 2mg daily SNRI cont therapy 08/17/2024 Generalized anxiety disorder (ICD-10 - F41.1) 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 - She confirms some traits: always talking, inability to stop, enjoying uplifting people and giving compliments. - Continue therapy sessions with mental health team. - Monitor progress and response to therapy. - Educate patient on coping strategies and self-awareness. 2. Insomnia - She reports sleeping well recently. - One episode of sleeping for 24 hours due to NyQuil for a cold. - Encourage good sleep hygiene. - Monitor sleep patterns and address concerns in future visits. 3. Depression - She denies feeling sad or blue. - Reports feeling discouraged about the future and more easily irritated. - Mentions difficulty getting interested in reading. - Continue duloxetine 60 mg for depression. - Monitor mood and depressive symptoms in future visits. - Encourage engagement in previously enjoyed activities, like reading. - continue therapy 4. Anxiety - She currently taking BuSpar for anxiety. - Continue BuSpar as prescribed. - Monitor anxiety levels and response to medication. - continue therapy 5. Aripiprazole Trial - She on aripiprazole for 1.5 weeks with no reported side effects. - Daughter noticed improvement in her condition over past few weeks. - Continue aripiprazole as prescribed. - Monitor response over next 6 weeks for improved therapeutic effect. 6. General Health Concerns - She reports concerns about physical problems: aches, pains, stomach issues. - Expresses interest in exercising at the gym. - Encourage regular exercise, including using free gym access through insurance. - Maintain healthy lifestyle. - Address specific health concerns in future visits or refer to primary care provider as needed. 7. Additional Notes - She does not meet diagnostic criteria for bipolar disorder. 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 - Encourage continuation of Bible reading and other comforting activities. 08/17/2024 Histrionic behavior (ICD-10 - F44.9) 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 - She confirms some traits: always talking, inability to stop, enjoying uplifting people and giving compliments. - Continue therapy sessions with mental health team. - Monitor progress and response to therapy. - Educate patient on coping strategies and self-awareness. 2. Insomnia - She reports sleeping well recently. - One episode of sleeping for 24 hours due to NyQuil for a cold. - Encourage good sleep hygiene. - Monitor sleep patterns and address concerns in future visits. 3. Depression - She denies feeling sad or blue. - Reports feeling discouraged about the future and more easily irritated. - Mentions difficulty getting interested in reading. - Continue duloxetine 60 mg for depression. - Monitor mood and depressive symptoms in future visits. - Encourage engagement in previously enjoyed activities, like reading. - continue therapy 4. Anxiety - She currently taking BuSpar for anxiety. - Continue BuSpar as prescribed. - Monitor anxiety levels and response to medication. - continue therapy 5. Aripiprazole Trial - She on aripiprazole for 1.5 weeks with no reported side effects. - Daughter noticed improvement in her condition over past few weeks. - Continue aripiprazole as prescribed. - Monitor response over next 6 weeks for improved therapeutic effect. 6. General Health Concerns - She reports concerns about physical problems: aches, pains, stomach issues. - Expresses interest in exercising at the gym. - Encourage regular exercise, including using free gym access through insurance. - Maintain healthy lifestyle. - Address specific health concerns in future visits or refer to primary care provider as needed. 7. Additional Notes - She does not meet diagnostic criteria for bipolar disorder. 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 - Encourage continuation of Bible reading and other comforting activities. 09/28/2024 Major depressive disorder, recurrent, mild (ICD-10 [...] episodes. - Encourage the patient to contact licensed psychologist director about how/when to start medications. Anxiety and [...] episodes. - Encourage the patient to contact licensed psychologist director about how/when to start medications. Anxiety and [...] the patient's mental health and overall well-being. 08/31/2024 Major depressive disorder, recurrent, mild (ICD-10 - F33.0) Mood Stabilization and Medication Management - Assessment: Patient reports improvement in mood and overall well-being since starting Lamictal. Family members have noticed a positive difference in her behavior. Patient feels calmer and more in control, especially during her recent trip to [place]. - Plan: - Monitor for any side effects or changes in mood. - Encourage the patient to report any concerns or changes in mood to the provider. Family Relationships and Support - Assessment: Patient reports improved relationships with family members, particularly her [id number]. She mentions positive interactions with her children and grandchildren, especially during their recent ving trip to [place]. - Plan: - Encourage the patient to continue fostering healthy relationships with family members. - Maintain open communication with family. - Recommend family therapy if any conflicts arise in the future. Social Engagement and Hobbies - Assessment: Patient is actively engaged in various hobbies, including sewing, beading, painting, and crafting [employer] decorations. She is taking sewing classes and learning new skills. Patient maintains friendships and participates in social activities, though becoming more selective about some friendships. - Plan: - Encourage the patient to continue pursuing her hobbies and social engagements. - Suggest exploring new activities or joining local clubs/groups to further expand her social network. Coping with Aging and Life Transitions - Assessment: Patient discusses her past experiences, including work and raising children, and reflects on the changes in her life as she ages. She mentions adjusting to having less energy compared to when she was younger. - Plan: - Encourage the patient to continue discussing her feelings and thoughts about aging and life transitions during therapy sessions. - Provide support and guidance in navigating these changes and maintaining a positive outlook on life. Marital Relationship - Assessment: Patient reports getting along well with her and attributes this to her improved mood and more stable emotions. She mentions her being more sweet and their relationship improving. - Plan: - Encourage the patient to continue working on her relationship with her , focusing on open communication and mutual support. - Recommend couples therapy if any conflicts or concerns arise in the future. 08/31/2024 Generalized anxiety disorder (ICD-10 - F41.1) Mood Stabilization and Medication Management - Assessment: Patient reports improvement in mood and overall well-being since starting Lamictal. Family members have noticed a positive difference in her behavior. Patient feels calmer and more in control, especially during her recent trip to [place]. - Plan: - Monitor for any side effects or changes in mood. - Encourage the patient to report any concerns or changes in mood to the provider. Family Relationships and Support - Assessment: Patient reports improved relationships with family members, particularly her [id number]. She mentions positive interactions with her children and grandchildren, especially during their recent giving trip to [place]. - Plan: - Encourage the patient to continue fostering healthy relationships with family members. - Maintain open communication with family. - Recommend family therapy if any conflicts arise in the future. Social Engagement and Hobbies - Assessment: Patient is actively engaged in various hobbies, including sewing, beading, painting, and crafting Flip decorations. She is taking sewing classes and learning new skills. Patient maintains friendships and participates in social activities, though becoming more selective about some friendships. - Plan: - Encourage the patient to continue pursuing her hobbies and social engagements. - Suggest exploring new activities or joining local clubs/groups to further expand her social network. Coping with Aging and Life Transitions - Assessment: Patient discusses her past experiences, including work and raising children, and reflects on the changes in her life as she ages. She mentions adjusting to having less energy compared to when she was younger. - Plan: - Encourage the patient to continue discussing her feelings and thoughts about aging and life transitions during therapy sessions. - Provide support and guidance in navigating these changes and maintaining a positive outlook on life. Marital Relationship - Assessment: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 and dissatisfaction with relationship with . - Plan: a. Write letter to daughter focusing on relationship, avoiding boyfriend mention. b. Maintain cordial but distant relationship with daughter's boyfriend in social settings. c. Discuss concerns about 's potential dementia with his PCP. 2. Depression - Patient reports depression score 10/10, currently on duloxetine 30mg and buspirone. - Plan: a. Increase duloxetine to 60mg daily from 40mg. b. Monitor for improvement in depressive symptoms. c. Follow-up in 1 month to assess medication adjustment. 3. Anxiety - Patient reports anxiety score 10/10, currently on buspirone 10mg BID. - Plan: a. Increase buspirone to 15mg BID. b. Monitor for improvement in anxiety symptoms. c. Follow-up in 1 month to assess medication adjustment. 4. Grief and Loss - Patient reports deaths of sister, mother, son-in-law, grandson contributing to depression/anxiet y. - Plan: a. Encourage grief counseling or support groups. b. Continue monitoring mental health. 5. Social Support and Hobbies - Patient enjoyed jewelry making, painting, desires reconnecting with daughter's grandson. - Plan: a. Re-engage in enjoyable hobbies and activities for nabeel/support. b. Explore maintaining relationship with grandson within boundaries. 08/17/2024 Other Assessment and plan reviewed with patient Call for problems with medication, side effects or need for dosage change Compliance issues reviewed Discussed the risks/benefits of this medication Discussed medication side effects Return if symptoms worsen Treatment options reviewed. discussed that it can take weeks to see full therapeutic effects of psychotropic medications. discussed when to seek emergency services. discussed crisis prevention hotline 319. 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 - She confirms some traits: always talking, inability to stop, enjoying uplifting people and giving compliments. - Continue therapy sessions with mental health team. - Monitor progress and response to therapy. - Educate patient on coping strategies and self-awareness. 2. Insomnia - She reports sleeping well recently. - One episode of sleeping for 24 hours due to NyQuil for a cold. - Encourage good sleep hygiene. - Monitor sleep patterns and address concerns in future visits. 3. Depression - She denies feeling sad or blue. - Reports feeling discouraged about the future and more easily irritated. - Mentions difficulty getting interested in reading. - Continue duloxetine 60 mg for depression. - Monitor mood and depressive symptoms in future visits. - Encourage engagement in previously enjoyed activities, like reading. - continue therapy 4. Anxiety - She currently taking BuSpar for anxiety. - Continue BuSpar as prescribed. - Monitor anxiety levels and response to medication. - continue therapy 5. Aripiprazole Trial - She on aripiprazole for 1.5 weeks with no reported side effects. - Daughter noticed improvement in her condition over past few weeks. - Continue aripiprazole as prescribed. - Monitor response over next 6 weeks for improved therapeutic effect. 6. General Health Concerns - She reports concerns about physical problems: aches, pains, stomach issues. - Expresses interest in exercising at the gym. - Encourage regular exercise, including using free gym access through insurance. - Maintain healthy lifestyle. - Address specific health concerns in future visits or refer to primary care provider as needed. 7. Additional Notes - She does not meet diagnostic criteria for bipolar disorder. 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 - Encourage continuation of Bible reading and other comforting activities. 09/13/2024 Other Assessment and Plan: 1. Depression and Anxiety - Patient reports improvement in mood, anxiety, and overall functioning since the last visit - reports satisfaction with current medicaton regimen Plan: - Continue duloxetine 60 mg daily, buspirone 15 mg BID, aripiprazole 2 mg daily - Encouraged maintenance of social connections and engagement in enjoyable activities such as sewing, crafting, and attending sabianist events. - Continue therapy with Natalie -Follow up in 2 months, or sooner is concerns arise Plan Of Treatment Next Appt Details Provider Name:Martha Arabella haley, 11/15/2024 01:15:00 PM, [address], [facility] [address], [place], [address], Insurance Providers Payer Name Payer Address Payer Phone Subscriber Number Group Number Insured Name Patient Relationship to Insured Coverage Start Date Coverage End Date [employer] Medicare Replacement/ Advantage - [employer] [address] [place] [phone] [id number] Black, Ariane Self - patient is the insured Medical (General) History Medical History History ICD Code Mixed HLD Anxiety Disorder HTN hypothyroid Surgical History Surgery Date(Month/Year) hysterectomy 1973 galbladder removal 1964 Hospitalization History Reason Date(Month/Year) interstitial lung disease 2016
--- OUTSIDE RECORDS SUMMARY | 2024-10-20 04:48 | XMS_ITS | Clinical Summary ---
Author Organization [facility] Address [address] [place] [address] Care Team Providers Care Forestry Support Specialist Name Role Phone Davon Fagan MD Primary Care Provider [phone] Source Comments [facility]non-owned Affiliates and Associated Physician Practices is amultiple site organization consisting of ambulatory clinics and hospital sitesin [place], [place], [place] and [place]. This disclosure is being madepursuant to the Care Everywhere program and may not contain all information available regarding this patient. Last updated 18.[facility] Allergies No known active allergies Medications * Be aware that medications may not be up to date on this document. Alwaysverify current medications with the patient. Medication Sig Dispensed Refills Start Date End Date Status albuterol (PROVENTIL;VENTOLIN) (5 MG/ML) 0.5% nebulizer solution Inhale 2.5 mg by mouth 4 times daily as needed for Shortness of Breath or Wheezing Active albuterol HFA (PROVENTIL;VENTOLIN;AZ OAIR) 108 (90 Base) MCG/ACT inhaler Inhale 2 puffs by mouth every 6 hours as needed Active Citalopram Hydrobromide (CELEXA PO) Active LOSARTAN POTASSIUM PO Act tabitha Budesonide-Formoterol Fumarate (SYMBICORT IN) Active Pantoprazole Sodium (PROTONIX PO) Active CHLORTHALIDONE PO Take 12.5 mg by mouth Active Social History Tobacco Use Types Packs/Day Years Used Date Smoking Tobacco: Passive Smo ke Exposure - Never Smoker Smokeless Tobacco: Never Sex and Gender Information Value Date Recorded Sex Assigned at Not on file Gender Identity Not on file Sexual Orientation Not on file Last Filed Vital Signs Vital Sign Reading Time Taken Comments Blood Pressure 106/62 12/18/2019 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 [employer] Pulse 81 12/18/2019 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 [employer] Temperature 37.3 ??C (99.1 ??F) 12/18/2019 10:[address] Respiratory Rate 17 12/18/2019 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 [employer]ER Oxygen Saturation 95% 12/18/2019 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 [employer] Inhaled Oxygen Concentration - - Weight 81.6 kg (180 lb) 12/18/2019 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 [employer]ER Height 160 cm (5' 3 ) 12/18/2019 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 [employer] Body Mass Index 31.89 12/18/2019 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 PAN [employer]ER Plan of Treatment Health Maintenance Due Date Last Done Comments BONE DENSITY TESTING 1944 DTAP/TDAP/TD VACCINES (1 - Tdap) 1963 ZOSTER VACCINE (1 of 2) 1994 PNEUMOCOCCAL VACCINE 50+ (1 of 1 - PCV) 2009 Respiratory Syncytial Virus (RSV) Vaccine Pt: or over 60 yrs (1 - 1-dose 75+ series) 2019 COVID-19 VACCINE ( - 2023-2 5 season) 2024 INFLUENZA VACCINE (#1) 2024 DEPRESSION SCREENING 10/13/2024 MEDICARE AWV ? CALENDAR YEAR 2024 HEPATITIS B VACCINE Aged Out No longe r eligible based on patient's age to complete this topic HIB VACCINE Aged Out No longer eligi ble based on patient's age to complete this topic HPV VACCINE Aged Out No longer eligi ble based on patient's age to complete this topic MENINGOCOCCAL VACCINE Aged Out No estefani jina eligible based on patient's age to complete this topic Care Teams Forestry Support Specialist Relationship Specialty Start Date End Date Davon Fagan MD [address] [place] [address] PCP - General 03/16/19
--- OUTSIDE RECORDS SUMMARY | 2024-10-20 04:48 | XMS_ITS ---
Author Organization [facility] [employer] Address [address] [facility] [address] [place] [address] Care Team Providers Care Manager Stylist Name Role Phone Davon Fagan MD Primary Care Provider Geraldo arnett Jonathan Martha Unavailable [phone] Allergies No Known Allergies REASON FOR VISIT follow up depression, anxiety, histrionic personality disorder Medications Medication SIG (Take, Route, Frequency, Duration) Notes Start Date End Date Status Losartan Potassium 100 MG TAKE 1 TABLET BY MOUTH EVERY DAY Oral for 90 Days Active Levothyroxine Sodium 75 MCG Oral for 90 Days Active ARIPiprazole 2 MG 1 tablet Oral Once a day for 30 days 08/03/2024 Active Budesonide-Formoterol Fumarate 160-4.5 MCG/ACT Inhalation for 90 Days Active Pantoprazole Sodium 40 MG TAKE 1 TABLET BY MOUTH EVERY MORNING Oral for 90 Days Active DULoxetine HCl 60 MG 1 capsule Orally On ce a day for 90 days Active Chlorthalidone 25 MG 1 tablet in the mor joseph with food Orally Active busPIRone HCl 15 MG 1 tablet Oral Twice a day for 90 days Active Social [...] No Interpretation Positive Section Notes: Live in [place], in a h ouse with of 60 yrs. 2 grown children. Grew up [place], 3 siblings, she is oldest. 1 brother is alive. Education/employment: bachelors in theology. 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 Very involved in sabianist-taoist, grew up [employer]. 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 Depression [...] sooner is concerns arise Plan Of Treatment Medication Medication Name Sig Start Date Stop Date Notes ARIPiprazole 2 MG 1 tablet Oral Once a day for 30 days DULoxetine HCl 60 MG 1 capsule Orally On ce a day for 90 days busPIRone HCl 15 MG 1 tablet Oral Twice a day for 90 days Next Appt Details Follow Up: 2 Months, Reason: Provider Name:Martha haley, 11/15/2024 01:15:00 PM, [address] [address], [address], [address], Progress Notes * Ariane SALAZAR TDOB: [birth year] (79 yo F)Acc No.[id number]:09/13/2024 Patient:?Ariane SALAZAR Provider:?Martha Castillo :1945???Age:79 Y???Sex:Female D ate:09/13/2024 Address:[address] [place] [address] Pcp:Davon Fagan MD Subjective: * Chief Complaints: * ???Follow up depression, anx iety, histrionic personality disorder * HPI: ???General Follow Up:?79 y/o female,?, 2 grown children, retired, here to follow up r/t depression and anxiety, context psychosocial stressors 09/13/24 f/u: last visit started abilify 2 mg daily for lingering depressive symptoms, reports today doing better, feels like adding that medications was the right thing to do. Reports an improvement in mood, anxiety, and overall well-being. Denies SI, panic, psychosis, manic symptom. Had a recent episode of increase anxiety related to a scam involving her [employer] account, but felt managed it well compared to previously during distressing sitiuations. Talks extensively about life, social concerns, stressors. She discusses her relationship dynamics, bringing up the?complex situation involving her close male friend now dating her daughter.?Does make statements indicating ill feelings towards the situation are still present, butstates she feels overall has coped well through this, managing stressors more effectively.?Feels well supported by those around her overall.?She has been feeling bored lately, has been motivating herself more to?participate in hobbies such as sewing, painting, and making jewelry. Appetite good overall,?nutritional intake is adequate. Sleep is good. Actively involved in her sabianist community, finding comfort in her jennifer. in therapy with silvia Estrada.?SLUMS today , no impairment. ???Depression Screening:?MARYURI-7 (2018 Edition)?Feeling nervous, anxious, or on edge?Not at all,?Not being able to stop or control worrying?Several days,?Worrying too much about different things?Several days,?Trouble relaxing?Not at all,?Being so restless that it is hard to sit still?Nearly every day,?Becoming easily annoyed or irritable?Not at all,?Feeling afraid as if something awful might happen?Not at all,?Total MARYURI-7 Score?5,?If you checked any problems, how difficult have they made it for you to do your work, take care of things at home, or get along with other people??Somewhat difficult,?Interpretation of Total?(5 to 9) Mild.?Depression screening:?PHQ-9?Little interest or pleasure in doing things?More than half the days,?Feeling down, depressed, or hopeless?Not at all,?Trouble falling or staying asleep, or sleeping too much?Several days,?Feeling tired or having little energy?Nearly every day,?Poor appetite or overeating?Not at all,?Feeling bad about yourself or that you are a failure, or have let yourself or your family down?Nearly every day, Trouble concentrating on things, such as reading the newspaper or watching television?Not at all,?Moving or speaking so slowly that other people could have noticed; or the opposite, being so fidgety or restless that you have been moving around a lot more than usual?Not at all,?Thoughts that you would be better off or of hurting yourself in some way?Not at all, Total Score?9,?Interpretation?Mild Depression.?Intervention?Depression Screening Findings?Positve,?Follow-Up for Depression?Mental health treatment assessment, Patient follow-up to return when and if necessary,?Suicide Risk Assessment Performed?09/13/2024 ,?Additional Evaluation for Depression?Psychiatric interview and evaluation,?Name of the standardized tool used for adult depression screening:?Patient Health Questionnaire (PHQ-9).?History of Presenting Problem:?note: all previous encounters with a different provider, see prior notes for more details 08/03/24 f/u: last visit with me increased buspar, [facility] provider out of office and duloxetine and buspar were increased.? I had my 79th birthday. I think it's (medication) working really well. I feel really really good today. Mood is better most of the time, except my is so mean. Have more interest in doing things, but he doesn't want to do things. Would say depression is moderate. But I should be happy, no reason to be depressed. Denies SI. I worry a lot, is significantly better on medication. Sleep like a rock. Denies channing-I would love to feel like that. I run around, but I've always been like that. I shop, but usually don't spend over 30$ at a time. Denies psychosis. Denies memory concerns.?PHQ-9 and MARYURI-7 still significant.?BP elevated, she had therapy appt and forgot and left and had to izquierdo back for appt, believes that is why was higher.?talks about social concerns.?started therapy with Natalie-going well, processing issue with the daughter and that man? cont buspirone 15mg TID;?cont duloxetine 60mg daily;?start abilify 2mg daily 06/16/24 f/u: last visit cross tapered celexa to duloxetine; tolerated ok.?My daughter says I'm doing good on it. mood and anxiety are better most of the time. Denies SI. Sometimes feel bad if start thinking about things too much. Think less irritable. having more interest, been picking up my sewing. Denies channing, psychosis.?She (daughter) sent me here about that sheyla, and now they are madly in love. She says he treats me like a razo, and I tried to tell her that he was like that to me at first too. I need to learn coping.??talks extensively about life, social concerns, stressors ?increase buspirone 10mg BID;?cont duloxetine 30mg daily 05/13/24 f/u: added buspar low dose, denies side effects, but no benefit.?feeling more depressed, not interested in things. and irritable, can't stand anybody. When I would take my lorazepam I would feel normal, but I got rid of it, I don't want to get addicted. get tired of people and their negativism. Some friends want 24/7 and I can't do that.?I hurt people's feelings and they hurt mine. I have a good life, a good , he is not affectionate, more stoic. I want more attention and flattery. My daughter is mad at me, I doubt she'll get over it. That man has destroyed my relationship with my daughter. Denies SI, channing, psychosis. stopped lorazepam; stopped citalopram, started?duloxetine 30mg daily;?cont buspirone 5mg BID 04/08/24 intake eval: my daughter thinks I'm crazy/OCD, I get obsessed with things, people are getting on my nerves, I can't stand their pettiness, stupidity. 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 All the friends I grew up are except one with dementia-didn't realize at first we rearranged a lot of things to help her. Took her to bible study we run and tried to introduce her to my friends, she was glued to my side, I don't like that, we are independent in my family, need space. Friend would cancel on plans a lot and then be upset sabianist didn't invite her anymore. And then she started telling pt that she looked and dressed like old lady and wasn't being a good friend, etc. Getting on my nerves..?I create drama, but it's not me, it's everyone around me. Throughout assessment, tells various stories about other people, their behavior, how it bothers her.?I always want to do everything anyone asks me to do, people pleaser, unless it's immoral. Ask why does daughter say she is crazy/being obsessive? about a man that is not my . He paid a lot of attention to me, tells me how beutiful I am, and he hugged me alot he said that is how he is hugs everyone, got to point we were texting, nothing sexual, and he would text he loves me. I would say I love him and Abimael too. He said God put us together. But our love in [place] is pure. 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 We talk about our families. My doesn't care if I were to go out to movies or anything, is not a jealous. He wants to meet my daughter and rest of family. He knows my as much as he knows me. She does not feel it is romantic. He called pt daughter and took her out for appetizers. So now he is calling and texting her and says that he loves her and they are going to take it slow but he always will love me too. Daughter likes him but says it's not romantic. So I'm conflicted and confused. So I said I would block him for awhile, need a break, and he said I'll save you from it and block you. I don't want to hurt him. I don't want to be in any 3 way friendship with my daughter. Says he loves me as a friend, like family. But then says he loves daughter.? note: well groomed, make up, jewelry, was reading book in [employer] while waiting; talkative, social. SOCIAL HX: Live in [place], in a house with of 61 yrs.?2 grown children. Grew up [place], 3 siblings, she is oldest. 1 brother is alive. Education/employment: bachelors in [employer]. 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 Very involved in sabianist-taoist, grew [facility]. Denies service.?Denies hx of committing assault, property damage, etc., legal problems,?incarceration. substacen use:?Caffeine: 3-6c coffee in am;?Cigarette/vape: non smoker;?ETOH: never in whole life;?Cannabis: denies;?Other drug use: denies;?Treatment hx: denies FAMILY PSYCHIATRIC HX: dad depression when older. Denies?family hx of attempted or completed suicide. PSYCHIATRIC HX:Dx: anxiety, depression. Denies hx?of psychiatric hospitalizations. Denies hx of suicide attempts or self-injury.?Denies hx of ECT, Spravato, TMS. DEPRESSION: first time was day shannen cm , made me realize life was moving forward and that would lose people etc. After had hysterectomy I was really down. Currently some, losing interest in things, get bored, except like to paint and sew but don't have time, not keeping up with housework as well and like a clean house. Pushing people away. Denies helpless/hopeless. I just want my own life, have been taking care of everyone else. I want people to leave me alone expect kids and best friends. But if I try to do less, people get mad at me. Denies SI, never been a problem.? SLEEP: wonderful ANXIETY: since childhood. ruminates, worry about all kinds of little things I shouldn't. maybe some restless. doesn't keep awake.?PANIC ATTACKS: can have when have interstitial lung attacks, but not in general. OBSESSIONS OR COMPULSIONS:?denies; but my daughter says I have OCD because I overthink things/decisions which is because I don't want to make mistakes. CHANNING HX: Denies symptom hx?consistent with manic/hypomanic episode.?PSYCHOSIS HX: denies hx of hallucinations, delusions, paranoia MEMORY sx: denies, does all own ADLs, etc. still drive, volunteers, etc COUNSELING HX: never TRAUMA/ABUSE HX: parents were very strict, but loving. child: denies. adult: denies. 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 They gave me xanax. been on something since then. Celexa for decades, lorazepam-don't take every day though needing it more and more; was hardly at all but lately every other day it helps me feel normal. past: zoloft.?diazepam. QUALITY REVIEW TRAINER was prescribing bzo, then saw new PCP a month ago and QUALITY REVIEW TRAINER said he didn't want to interfere with Dr sol treatment so Dr Fagan's PA is prescribing both meds now. ???Psychotherapy with Med eval:?Therapy with Med eval?Psychotherapy with Medication management?Yes,?Psychotherapy done Time Spent Minute?16 Min,?Type of therapy done?Supportive Therapy.? * ROS:?General / Constitutional:?Patient denies?change in appetite, fatigue, headache, lightheadedness, sleep disturbance, weight gain, weight loss.?Cardiovascular:?Patient denies?chest pain, dizziness, palpitations, swelling in hands / feet.?Gastrointestinal:?Patient denies?abdominal pain, change in bowel habits, nausea, vomiting, difficulty swallowing.?Neurologic:?Patient denies?balance difficulty, confusion, dizziness, fainting, headache, irritability, tremor, tic, seizures.?Psychiatric:?Patient denies?suicidal thoughts, psychosis, auditory / visual hallucinations, delusions, channing.?Comments?See HPI for more details.? * Medical History:? * Surgical History:?hysterecto my 1973galbladder removal 1964 * Hospitalization/Major Diagno stic Procedure:?interstitial lung disease 2017 * Family History:?Father: depr ession when older.?Sister: .?1 brother(s) , 2 sister(s) . 1 son(s) , 1 daughter(s) . .? Brother is 10 years younger.? Son is a physician representative, out of state.? One sister passed at 12 years old (Leukemia?) and one sister passed recently. They were much younger, not raised together. * Social History:?Tobacco Use:?Tobacco Control (Standard)?Tobacco use:?Nonsmoker.?Drug/Alcohol:?AUDIT-C (Standard)?Did you have a drink containing alcohol in the past year??No,?Interpretation?Positive.?Live in [place], in a house with of 61 yrs.?2 grown children. Grew up [place], 3 siblings, she is oldest. 1 brother is alive. Education/employment: bachelors in theology. 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 Very involved in sabianist-taoist, grew up [facility]. * Medications:?TakingChlorthal idone 25 MG Tablet 1 tablet in the morning with food Orally Losartan Potassium 100 MG Tablet TAKE 1 TABLET BY MOUTH EVERY DAY Oral Levothyroxine Sodium 75 MCG Tablet Oral Budesonide-Formoterol Fumarate 160-4.5 MCG/ACT Aerosol Inhalation Pantoprazole Sodium 40 MG Tablet Delayed Release TAKE 1 TABLET BY MOUTH EVERY MORNING Oral ARIPiprazole 2 MG Tablet 1 tablet Oral Once a day busPIRone HCl 15 MG Tablet TAKE 1 TABLET BY MOUTH TWICE A DAY DULoxetine HCl 60 MG Capsule Delayed Release Particles TAKE 1 CAPSULE BY MOUTH EVERY DAY FOR 30 DAYS Medication List reviewed and reconciled with the patientTaking Chlorthalidone 25 MG Tablet 1 tablet in the morning with food Orally Taking Losartan Potassium 100 MG Tablet TAKE 1 TABLET BY MOUTH EVERY DAY Oral Taking Levothyroxine Sodium 75 MCG Tablet Oral Taking Budesonide-Formoterol Fumarate 160-4.5 MCG/ACT Aerosol Inhalation Taking Pantoprazole Sodium 40 MG Tablet Delayed Release TAKE 1 TABLET BY MOUTH EVERY MORNING Oral Taking ARIPiprazole 2 MG Tablet 1 tablet Oral Once a day Taking busPIRone HCl 15 MG Tablet TAKE 1 TABLET BY MOUTH TWICE A DAY Taking DULoxetine HCl 60 MG Capsule Delayed Release Particles TAKE 1 CAPSULE BY MOUTH EVERY DAY FOR 30 DAYS Medication List reviewed and reconciled with the patient * Allergies:?N.K.D.A.no[Allerg ies Verified] Objective: * Vitals:?BP:116/66mm Hg, HR:8 0/min, Wt:161lbs, Wt-k.03 kg, Ht: 63 in, Ht-cm: 160.02 cm, BMI:28.52Index, Body Surface Area: 1.8. * Examination: ???General Examination: ?General appearance:?alert, pleasant, well-nourished and in no acute distress.?Psychiatry: ?Dementia?.?Appearance:?well-groomed, well-nourished, appears stated age.?Abnormal body movements:?none.?Affect / mood:?appropriate, full range.?Attention:?good, normal in conversation.?Attitude:?cooperative, open-minded with collaborative approach.?Homicidal ideation:?none.?Suicidal ideation:?none.?Memory status:?no impairment noted.?Delusions:?no.?Hallucinations:?no.?Insight:?good.?Intellectual functioning:?no impairment noted.?Judgement:?good.?Orientation:?awake, alert and oriented x 3.?Speech / language:?appropriate pitch/modulation, clear and coherent, normal rate, volume, and articulation (RVR), proper grammar used.?Thought content:?appropriate.?Thought process:?intact.?Functional Assessment: ?Hansen Index of ADL?.?Physical Functioning?.?1 point for independence, 0 for help1 point for independence, 0 for help. ???Neurology: ???slums? . 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 Assessment and Plan: 1. Depression and Anxiety ?- Patient reports improvement in mood, anxiety, and overall functioning since the last visit ?- reports satisfaction with current medicaton regimen Plan: ? ?- Continue duloxetine 60 mg daily, buspirone 15 mg BID, aripiprazole 2 mg daily ?- Encouraged maintenance of social connections and engagement in enjoyable activities such as sewing, crafting, and attending sabianist events. ?- Continue therapy with Natalie ? -Follow up in 2 months, or sooner is concerns arise Plan: * Treatment: 2.?Generalized anxiety disor dinora? Refill busPIRone HCl Tablet, 15 MG, 1 tablet Oral Twice a day, 90 days, 180 Tablet, Refills 1;?Refill DULoxetine HCl Capsule Delayed Release Particles, 60 MG, 1 capsule Orally Once a day, 90 days, 90 Capsule, Refills 1.?? * Procedure Codes:?91477 BEHAV ASSMT W/SCORE & DOCD/STAND [id number] PSYCHOTHERAPY W/PATIENT W/E&M SRVCS 30 [id number] VISIT COMPLEXITY INHERENT TO ONGOING CARE RELATED TO A PATIENT'S SINGLE, SERIOUS CONDITION OR A COMPLEX CONDITION * Follow Up:?2 Months * Billing Information: * Visit Code:? 80165 OFFICE OUTPATIENT VISIT 25 MINUTES DETAILED HISTORY AND EXAM/MODERATE MEDICAL DECISION MAKING. * Procedure Codes:? 51276 BEHAV ASSMT W/SCORE & DOCD/STAND INSTRUMENT. 25169 PSYCHOTHERAPY W/PATIENT W/E&M SRVCS 30 MIN. G2211 VISIT COMPLEXITY INHERENT TO ONGOING CARE RELATED TO A PATIENT'S SINGLE, SERIOUS CONDITION OR A COMPLEX CONDITION. * T ACCOUNTS SUPERVISOR Electronically co-signed by Boris Andersen MD on 09/14/2024 at 11:27 AM [employer]UST ACCOUNTS SUPERVISOR Sign off status: Completed true * Provider:?Martha Castillo Date:? 024 Generated for Layla davis/Anthony/eTransmitting on:?10/20/2024 04:48 AM TRUST ACCOUNTS SUPERVISOR History and Physical Notes * HPI (History of Present Illness) Category Sub-Category Detail Notes Category Not es Depression screening PHQ-9 Little inte rest or pleasure in doing things: More than half the days Feeling down, depressed, or hopeless: No t at all Trouble falling or staying asleep, or sl eeping too much: Several days Feeling tired or having little energy: N early every day Poor appetite or overeating: Not at all Feeling bad about yourself o r that you are a failure, or have let yourself or your family down: Nearly every day Trouble concentrating on thi ngs, such as reading the newspaper or watching television: Not at all Moving or speaking so slowly that other people could have noticed; or the opposite, being so fidgety or restless that you have been moving around a lot more than usual: Not at all Thoughts that you would be b sharon off or of hurting yourself in some way: Not at all Total Score: 9 Interpretation: Mild Depression Intervention Depression Screening Findings: P ositve Follow-Up for Depression: [facility] treatment assessment, Patient follow-up to return when and if necessary Suicide Risk Assessment Performed: 09/13 Additional Evaluation for De pression: Psychiatric interview and evaluation Name of the standardized too l used for adult depression screening:: Patient Health Questionnaire (PHQ-9) Depression Screening MARYURI-7 (2018 Edition) Feelbindu g nervous, anxious, or on edge: Not at all Not being able to stop or control worryfranco ng: Several days Worrying too much about different things : Several days Trouble relaxing: Not at all Being so restless that it is hard to sit still: Nearly every day Becoming easily annoyed or irritable: No t at all Feeling afraid as if something awful harley ht happen: Not at all Total MARYURI-7 Score: 5 If you checked any problems, how difficult have they made it for you to do your work, take care of things at home, or get along with other people?: Somewhat difficult Interpretation of Total: (5 to 9) Mild Psychotherapy with Med eval Therapy with Med buddy l Psychotherapy with Medication management: Yes ?Psychotherapy done Time Spent Minute: 1 6 Min ?Type of therapy done: Supportive Therap y Examination Category Sub-Category Detail Notes Category Not es Neurology [facility] Psychiatry Appearance: well-groomed, we ll-nourished, appears stated age Attitude: cooperative, open-mi nded with collaborative approach Abnormal body movements: none Attention: good, normal in conv ersation Orientation: awake, alert and filippo ented x 3 Affect / mood: appropriate, full ra nge Speech / language: appropriate pitch/mo dulation, clear and coherent, normal rate, volume, and articulation (RVR), proper grammar used Insight: good Judgement: good Thought process: intact Thought content: appropriate Suicidal ideation: none Homicidal ideation: none Intellectual functioning: no impairment noted Memory status: no impairment noted Delusions: no Hallucinations: no Dementia Safety concern scree joseph for dangerousness to self and environment risks provided:: Yes ?What action was taken to mitigate the r isk?: Education provided ?Topics discussed for enviro nmental risks:: Home safety risks that could arise from cooking or smoking, Access to firearms or other weapons, Access to potentially dangerous chemicals and other materials ?Topics discussed for danger ousness to self:: Medication misuse, Financial mismanagement ?Safety concern mitigation recommendatio n provided:: Not required ?Screening Result:: Negative Caregiver education and support provided : Yes General Examination General appearance: alert, p leasant, well-nourished and in no acute distress Functional Assessment Hansen Index of ADL Score:: 6 1 point for independence, 0 for help 1 point for independence , 0 for help 1 point for independence , 0 for help Physical Functioning Personal hygiene: i ncluding combing hair, brushing teeth, shaving, applying makeup, washing/drying face and hands (exclude baths and showers): Independent (1) Bathing: how client takes fu ll-body bath/shower or sponge bath (exclude washing of back and hair). Includes how each part of body is bathed: arms, upper and lower legs, chest, abdomen, perineal area. (code for most dependent episode in last 7 days): Independent (1) Dressing upper body: how cli ent dresses and undresses (street clothes, underwear) above the waist, includes prostheses, orthotics, fasteners, pullovers, etc.: Independent (1) Dressing lower body: how cli ent dresses and undresses (street clothes, underwear), from the waist down, includes prostheses, orthotics, belts, pants, skirts, shoes, and fasteners: Independent (1) Eating - Including taking in food by any method, including tube feedings: Independent (1) Toilet use: including using the toilet room or commode, bedpan, urinal, transferring on/off toilet, cleaning self after toilet use or incontinent episode, changing pad, managing any special devices required (ostomy or catheter), and adjusting clothes.: Independent (1) Transfer: including moving t o and between surfaces--to/from bed, chair, wheelchair, standing position (excludes to/from bath/toilet): Independent (1) Transportation: No difficulty Continence:: Independent (1)
--- OUTSIDE RECORDS SUMMARY | 2024-10-20 04:48 | XMS_ITS | Referral Summary ---
Author Organization [facility] [employer] Address [address] [place] [address] Care Team Providers Care Care Giver Name Role Phone Davon Fagan MD Primary Care Provider [phone] Source Comments [facility] [employer],non-owned Affiliates and Associated Physician Practices is amultiple site organization consisting of ambulatory clinics and hospital sitesin [place], [place], [place] and [place]. This disclosure is being madepursuant to the Care Everywhere program and may not contain all information available regarding this patient. Last updated 18.[facility] [employer] Allergies No known active allergies Medications * Be aware that medications may not be up to date on this document. Alwaysverify current medications with the patient. Medication Sig Dispensed Refills Start Date End Date Status albuterol (PROVENTIL;VENTOLIN) (5 MG/ML) 0.5% nebulizer solution Inhale 2.5 mg by mouth 4 times daily as needed for Shortness of Breath or Wheezing Active albuterol HFA (PROVENTIL;VENTOLIN;DE OAIR) 108 (90 Base) MCG/ACT inhaler Inhale [...] Comments Blood Pressure 106/62 12/18/2019 10:59 AM PR INTERNSHIP Pulse 81 12/18/2019 10:59 AM PR INTERNSHIP Temperature 37.3 ??C (99.1 ??F) 12/18/2019 10:[address] Respiratory Rate 17 12/18/2019 10:59 AM PR INTERNSHIP Oxygen Saturation 95% 12/18/2019 10:59 AM PR INTERNSHIP Inhaled Oxygen Concentration - - Weight 81.6 kg (180 lb) 12/18/2019 10:59 AM PR INTERNSHIP Height 160 cm (5' 3 ) 12/18/2019 10:59 AM PR INTERNSHIP Body Mass Index 31.89 12/18/2019 10:59 AM PR INTERNSHIP Plan of Treatment Not on file Care Teams Care Giver Relationship Specialty Start Date End Date Davon Fagan MD [address] [place] [address] PCP - General 03/16/19
--- OUTSIDE RECORDS SUMMARY | 2024-10-20 04:48 | XMS_ITS | Encounter Summary ---
Author Organization [facility] Address [address] [place] [address] Care Team Providers Care Direct Customer Service Representative Name Role Phone Davon Fagan MD Primary Care Provider [phone] Reason for Visit * Reason Onset Date Comments Follow-up 12/20/2019 Encounter Details Date Type Department Care Team (Late st Contact Info) Description 12/20/2019 Telephone [facility] [id number] [place] [address] Adina Weston APRN-CNP [address] [place] [address] Follow-up Social History Tobacco Use Types Packs/Day Years Used Date Smoking Tobacco: Passive Smo ke Exposure - Never Smoker Smokeless Tobacco: Never Sex and Gender Information Value Date Recorded Sex Assigned at Not on file Gender Identity Not on file Sexual Orientation Not on file documented as of this encounter Miscellaneous Notes * Telephone Encounter - Adina Weston APRN-CNP - 12/20/2019 9:34 AM CDT Courtesy follow-up phone call made to patient. Patient states she is feeling much better. Adina Weston DNP, CUSTOMER MARKETING INTERN-BC documented in this encounter Plan of Treatment Not on file documented as of this encounter Visit Diagnoses Not on filedocumented in this encounter Care Teams Direct Customer Service Representative Relationship Specialty Start Date End Date Davon Fagan MD [address] [place] [id number] PCP - General 03/16/19 documented as of this encounter
== END 2024-10-13 10:30 | disposition left against medical advice (07) ==
PROVIDERS: PCP Family Medicine
DX: Z53.21 Procedure and treatment not carried out due to patient leaving prior to being seen by health care provider (principal)
CPT/HCPCS: 99199

== ENCOUNTER 2024-11-18 14:32 | Outpatient (CLI) | payer OTHER, SELFPAY ==
--- OUTSIDE RECORDS SUMMARY | 2024-11-18 14:48 | XMS_ITS | Referral Summary ---
Author Organization [facility] [employer] Address [address] [place] [address] Care Team Providers Care Project Administrator Name Role Phone Davon Fagan MD Primary Care Provider [phone] Source Comments [facility] [employer],non-owned Affiliates and Associated Physician Practices is amultiple site organization consisting of ambulatory clinics and hospital sitesin [place], [place], [place] and [place]. This disclosure is being madepursuant to the Care Everywhere program and may not contain all information available regarding this patient. Last updated 18.[facility] [employer] Allergies No known active allergies Medications * Be aware that medications may not be up to date on this document. Alwaysverify current medications with the patient. Medication Sig Dispensed Refills Start Date End Date Status albuterol (PROVENTIL;VENTOLIN) (5 MG/ML) 0.5% nebulizer solution Inhale 2.5 mg by mouth 4 times daily as needed for Shortness of Breath or Wheezing Active albuterol HFA (PROVENTIL;VENTOLIN;WA OAIR) 108 (90 Base) MCG/ACT inhaler Inhale [...] Comments Blood Pressure 106/62 12/18/2019 10:59 AM ADHESION TESTER Pulse 81 12/18/2019 10:59 AM ADHESION TESTER Temperature 37.3 C (99.1 F) 12/18/2019 10:59 AM ADHESION TESTER Respiratory Rate 17 12/18/2019 10:59 AM ADHESION TESTER Oxygen Saturation 95% 12/18/2019 10:59 AM ADHESION TESTER Inhaled Oxygen Concentration - - Weight 81.6 kg (180 lb) 12/18/2019 10:59 AM ADHESION TESTER Height 160 cm (5' 3 ) 12/18/2019 10:59 AM ADHESION TESTER Body Mass Index 31.89 12/18/2019 10:59 AM ADHESION TESTER Plan of Treatment Not on file Care Teams Project Administrator Relationship Specialty Start Date End Date Davon Fagan MD [address] [place] [address] PCP - General 03/16/19
--- OUTSIDE RECORDS SUMMARY | 2024-11-18 14:48 | XMS_ITS | Clinical Summary ---
Author Organization [facility] [employer] Address [address] [place] [address] Care Team Providers Care Box Puller Name Role Phone Davon Fagan MD Primary Care Provider [phone] Source Comments [facility] [employer],non-owned Affiliates and Associated Physician Practices is amultiple site organization consisting of ambulatory clinics and hospital sitesin [place], [place], [place] and [place]. This disclosure is being madepursuant to the Care Everywhere program and may not contain all information available regarding this patient. Last updated 18.[facility] [employer] Allergies No known active allergies Medications * Be aware that medications may not be up to date on this document. Alwaysverify current medications with the patient. Medication Sig Dispensed Refills Start Date End Date Status albuterol (PROVENTIL;VENTOLIN) (5 MG/ML) 0.5% nebulizer solution Inhale 2.5 mg by mouth 4 times daily as needed for Shortness of Breath or Wheezing Active albuterol HFA (PROVENTIL;VENTOLIN;[place]I OAIR) 108 (90 Base) MCG/ACT inhaler Inhale [...] Comments Blood Pressure 106/62 12/18/2019 10:59 AM AUTO WASH BUFFER Pulse 81 12/18/2019 10:59 AM AUTO WASH BUFFER Temperature 37.3 C (99.1 F) 12/18/2019 10:59 AM AUTO WASH BUFFER Respiratory Rate 17 12/18/2019 10:59 AM AUTO WASH BUFFER Oxygen Saturation 95% 12/18/2019 10:59 AM AUTO WASH BUFFER Inhaled Oxygen Concentration - - Weight 81.6 kg (180 lb) 12/18/2019 10:59 AM AUTO WASH BUFFER Height 160 cm (5' 3 ) 12/18/2019 10:59 AM AUTO WASH BUFFER Body Mass Index 31.89 12/18/2019 10:59 AM AUTO WASH BUFFER Plan of Treatment Health Maintenance Due Date Last Done Comments BONE DENSITY TESTING 1945 DTAP/TDAP/TD VACCINES (1 - Tdap) 1963 PNEUMOCOCCAL VACCINE 50+ (1 of 1 - PCV) 1994 ZOSTER VACCINE (1 of 2) 1994 Respiratory Syncytial Virus (RSV) Vaccine Pt: or over 60 yrs (1 - 1-dose 75+ series) 2019 COVID-19 VACCINE ( - 2023-2 5 season) 2024 INFLUENZA VACCINE (#1) 2024 DEPRESSION SCREENING 10/13/2024 MEDICARE AWV CALENDAR YEAR 2024 HEPATITIS B VACCINE Aged Out No longe r eligible based on patient's age to complete this topic HIB VACCINE Aged Out No longer eligi ble based on patient's age to complete this topic HPV VACCINE Aged Out No longer eligi ble based on patient's age to complete this topic MENINGOCOCCAL (Group B) VACCINE Aged Out No longer eligible based on patient's age to complete this topic MENINGOCOCCAL VACCINE Aged Out No estefani jina eligible based on patient's age to complete this topic Care Teams Box Puller Relationship Specialty Start Date End Date Davon Fagan MD [address] [place] [address] PCP - General 03/16/19
--- OUTSIDE RECORDS SUMMARY | 2024-11-18 14:48 | XMS_ITS | Clinical Summary ---
Author Organization [facility] Care Team Providers Care Bog Cutter Name Role Phone Unavailable Primary Care Provider [...]
--- OUTSIDE RECORDS SUMMARY | 2024-11-18 14:49 | XMS_ITS | Continuity of Care Document ---
Author Organization [facility] Address [address] [place] [address] [place] [address] Phone Care Team Providers Care Customer Service Trainer Name Role Phone Samantha Horton Unavailable Unavailable [...] Providers Copied on Encounter Office/[place]pat ient [place], [facility] [place] [address] [place] [address] [address], [place], [place], [id number], [place] tel:[phone] [facility] No Information 0-201 0 Sol Denise [address] , [address], [place], [place], [facility], [place]. tel:[phone] Office/outpat ient Visit, [facility], [address] [place] [address] [address], [place], [place], [id number], [place] tel:[phone] [facility] No Information 7-201 0 Sol Denise [address] [facility] , [address], [place], [address], [place]. tel:[phone] [facility], [address] [place] [address] [address], [place], [place], [id number], [place] tel:[phone] [facility] Corporate Center No Information May-2 0-201 0 Hortno Samantha. [address], [place], [address], [place]. tel:[phone] [facility], [address], [place], [place], [id number], [place] tel:[phone] [facility] No Information May-1 3-201 0 Horton Samantha. [address], [place], [address], [place]. tel:[phone] Referring Provider: Davon Fagan MD, [address], [place], [place], [facility]. tel:[phone] Office/outpat ient Visit, [facility], [address] [place] [address] [address], [place], [place], [id number], [place] tel:[phone] [facility] No Information Apr-2 1-200 8 Krishnasamy Brennan. [address], [place], [place], [facility], [place]. tel:[phone] Office/outpat ient Visit, [facility], [address] [place] [address] [address], [place], [place], [id number], [place] tel:[phone] [facility] No Information Mar-3 1-200 8 Krishnasamy Brennan. [address] [facility] [address], [place], [place], [facility], [place]. tel:[phone] [facility], [address], [place], [place], [id number], [place] tel:[phone] [facility] No Information Mar-1 0-200 8 Krishnasamy Brennan. [address] [facility] [address], [place], [place], [facility], [place]. tel:[phone] Family History Family Member Type Diagnosis Age At Onset No Information Payers Payer name Insurance type Covered alliance party ID Authoriza tibrennon(s) [employer] Claims [id number] Written Refer ral Social History Type Description [...]
--- OUTSIDE RECORDS SUMMARY | 2024-11-18 14:49 | XMS_ITS | Patient Health Summary ---
Author Organization [facility] [employer] Address [address] [place] [address] Care Team Providers Care Rotor Plate Washer Name Role Phone Davon Fagan MD Primary Care Provider [phone] Note from [facility],non-owned Affiliates and Associated Physician Practices is amultiple site organization consisting of ambulatory clinics and hospital sitesin [place], [place], [place] and [place]. This disclosure is being madepursuant to the Care Everywhere program and may not contain all information available regarding this patient. Last updated 18.[facility] [employer] Allergies No known active allergies Medications * [...] Comments Blood Pressure 106/62 12/18/2019 10:59 AM QUALITY ASSURANCE Pulse 81 12/18/2019 10:59 AM QUALITY ASSURANCE Temperature 37.3 C (99.1 F) 12/18/2019 10:59 AM QUALITY ASSURANCE Respiratory Rate 17 12/18/2019 10:59 AM QUALITY ASSURANCE Oxygen Saturation 95% 12/18/2019 10:59 AM QUALITY ASSURANCE Inhaled Oxygen Concentration - - Weight 81.6 kg (180 lb) 12/18/2019 10:59 AM QUALITY ASSURANCE Height 160 cm (5' 3 ) 12/18/2019 10:59 AM QUALITY ASSURANCE Body Mass Index 31.89 12/18/2019 10:59 AM QUALITY ASSURANCE Care Teams Rotor Plate Washer Relationship Specialty Start Date End Date Davon Fagan MD [address] [place] [address] PCP - General 03/16/19
[2024-11-18 15:33] LABS: Influenza A QL RT-PCR Negative (Negative); Influenza B QL RT-PCR Negative (Negative); RSV RNA, RT-PCR Negative (Negative); SARS-CoV-2 RNA PCR Negative (Negative)
== END 2024-11-18 14:33 | disposition home or self-care (01) ==
LOC: ANHLAB 14:36
PROVIDERS: PCP Family Medicine; Visit Provider Family Medicine
DX: J06.9 Acute upper respiratory infection, unspecified (principal)
CPT/HCPCS: 87637

== ENCOUNTER 2025-04-06 10:13 | Outpatient (CLI) | payer OTHER, SELFPAY ==
--- NOTE | 2025-04-06 10:36 | EST_ITS ---
Patient Info Name: Ariane Quick Age: 79 years : 1945 Gender: Female Ht: 63 in Wt: 158 lbs BSA: 1.81 m2 HR: 76 bpm BP: 121 / 88 mmHg Exam Date: 04/06/2025 10:36 AM Patient Status: O Admit Date: 04/06/2025 Exam Type: CA stress test treadmill A treadmill exercise stress test was performed. Staff Attending Provider: Stephanie Malagon Exercise Technologist: Venessa Burnham Exercise Physician: Jayro Peace DO Summary 1. 1. Negative Andry exercise stress test for ischemic ST changes by ECG criteria. However, patient achieved only 76% MPHR for age group which reduces sensitivity of the test. 2. 2. Poor functional capacity, achieving 3 METs of workload. 3. 3. Appropriate HR response to exercise. 4. 4. Appropriate HR recovery at 1 minute post exercise. 5. 5. No imaging with stress testing. 6. 6. Patient informed of the above results. Protocol: Andry Stress ECG Details Stage: REST Duration (min): 1 min : 9 sec Speed (mph): 0.0 Grade (%): 0 HR (bpm): 76 SBP (mmHg): 121 DBP (mmHg): 88 METS: --- Stage: REST Duration (min): 7 min : 28 sec Speed (mph): 0.0 Grade (%): 0 HR (bpm): 87 SBP (mmHg): 121 DBP (mmHg): 88 METS: --- Stage: STAGE 1 Duration (min): 1 min : 0 sec Speed (mph): 1.7 Grade (%): 10 HR (bpm): 103 SBP (mmHg): 121 DBP (mmHg): 88 METS: --- Stage: STAGE 1 Duration (min): 1 min : 12 sec Speed (mph): 1.7 Grade (%): 10 HR (bpm): 105 SBP (mmHg): 121 DBP (mmHg): 88 METS: --- Stage: RECOVERY Duration (min): 0 min : 47 sec Speed (mph): 0.0 Grade (%): 0 HR (bpm): 106 SBP (mmHg): 121 DBP (mmHg): 88 METS: --- Stage: RECOVERY Duration (min): 1 min : 47 sec Speed (mph): 0.0 Grade (%): 0 HR (bpm): 94 SBP (mmHg): 121 DBP (mmHg): 88 METS: --- Stage: RECOVERY Duration (min): 2 min : 47 sec Speed (mph): 0.0 Grade (%): 0 HR (bpm): 85 SBP (mmHg): 133 DBP (mmHg): 90 METS: --- Stage: RECOVERY Duration (min): 3 min : 47 sec Speed (mph): 0.0 Grade (%): 0 HR (bpm): 81 SBP (mmHg): 125 DBP (mmHg): 88 METS: --- Stage: RECOVERY Duration (min): 4 min : 26 sec Speed (mph): 0.0 Grade (%): 0 HR (bpm): 82 SBP (mmHg): 125 DBP (mmHg): 88 METS: --- Rest HR: 87 bpm Peak HR: 107 bpm Rest Sys BP: 121 mmHg Peak Sys BP: 133 mmHg Max Pred HR: 140 bpm % Max Pred HR: 76 % Target HR: 119 bpm Max RPP: 14,231 bpm*mmHg Medina Score: -0 Termination Reason: Maximal effort/unable to continue Cardiac Symptoms: Shortness of breath Max ST Seg Deviation: -0.30 mm Total Time: 1 min : 12 sec Rest Nicole BP: 88 mmHg Peak Nicole BP: 90 mmHg Angina Score: None Total METS: 3.1 Resting ECG Sinus rhythm. Stress ECG No ST changes. Arrhythmias None. Report Signatures
== END 2025-04-06 10:14 | disposition home or self-care (01) ==
PROVIDERS: PCP Family Medicine; Visit Provider Physician Assistant Medical
DX: R94.31 Abnormal electrocardiogram [ECG] [EKG] (principal)
CPT/HCPCS: 93017

== ENCOUNTER 2025-04-17 10:21 | Emergency (ER) | payer OTHER, SELFPAY ==
--- NOTE | ~2025-04-17 | XR_ITS ---
CHEST RADIOGRAPH CLINICAL HISTORY: dyspnea . COMPARISON: 08/19/2024 TECHNIQUE: Single portable view of the chest. FINDINGS The cardiomediastinal silhouette is unremarkable. Increased interstitial markings are identified bilaterally, findings suggesting mild pulmonary vascul ar congestion. Interstitial thickening is identified primarily within the periphery of the bilateral lower lobes sug gesting peripheral honeycombing. The remainder of the lungs are clear. IMPRESSION: Findings suggesting chronic interstitial lung disease, without focal infiltrate or effusion. Reviewed, dictated and finalized at location A.
--- NOTE | 2025-04-17 10:23 | ECG_ITS ---
Test Date: 2025-04-17 10:26:40 Measurements Intervals [place] Rate: 94 P: -8 VT: 175 QRS: -15 QRSD: 67 T: -3 QT: 279 QTc: 350 Interpretive Statements SINUS RHYTHM LOW QRS VOLTAGE IN PRECORDIAL LEADS [QRS DEFLECTION < 1.0 mV IN CHEST LEADS] INFERIOR MYOCARDIAL INFARCTION , PROBABLY OLD [40+ ms Q WAVE AND/OR ST/T ABNORMALITY IN II/aVF] ANTEROSEPTAL MYOCARDIAL INFARCTION , PROBABLY OLD [40+ ms Q WAVE IN V1-V4] No previous ECG available for comparison Electronically Signed On 04-17-2025 13:51:33 CDT by Mat Medley M.D.
--- OUTSIDE RECORDS SUMMARY | 2025-04-17 10:24 | XMS_ITS | Clinical Summary ---
Author Organization [facility] [employer] Address [address] [place] [address] Care Team Providers Care Cone Winder Name Role Phone Davon Fgaan MD Primary Care Provider [phone] Source Comments [facility] [employer],non-owned Affiliates and Associated Physician Practices is amultiple site organization consisting of ambulatory clinics and hospital sitesin [place], [place], [place] and [place]. This disclosure is being madepursuant to the Care Everywhere program and may not contain all information available regarding this patient. Last updated 18.[facility] [employer] Allergies No known active allergies Medications * Be aware that medications may not be up to date on this document. Alwaysverify current medications with the patient. albuterol (PROVENTIL;VENTOL IN) (5 MG/ML) 0.5% nebulizer solution Inhale 2.5 mg by mouth 4 times daily as needed for Shortness of Breath or Wheezing Active albuterol HFA (PROVENTIL;VENTOL IN;PROAIR) 108 (90 Base) MCG/ACT inhaler Inhale 2 puffs by mouth every 6 hours as needed Active Citalopram Hydrobromide (CELEXA PO) Active LOSARTAN POTASSIUM PO Active Budesonide-Formot ava Fumarate (SYMBICORT IN) Activ e Pantoprazole Sodium (PROTONIX PO) Active CHLORTHALIDONE PO Take 12.5 mg by mouth Active Social History Tobacco Use Types Packs/Day Years Used Date Smoking Tobacco: Passive Smo ke Exposure - Never Smoker Smokeless Tobacco: Never Comments No Sex and Gender Information Value Date Recorded Sex Assigned at Not on file Legal Sex Female 4:06 AM CDT Gender Identity Not on file Sexual Orientation Not on file Last Filed Vital Signs Vital Sign Reading Time Taken Comments Blood Pressure 106/62 12/18/2019 10:59 AM ORTHOPEDIC SHOE FITTER Pulse 81 12/18/2019 10:59 AM ORTHOPEDIC SHOE FITTER Temperature 37.3 C (99.1 F) 12/18/2019 10:59 AM ORTHOPEDIC SHOE FITTER Respiratory Rate 17 12/18/2019 10:59 AM ORTHOPEDIC SHOE FITTER Oxygen Saturation 95% 12/18/2019 10:59 AM ORTHOPEDIC SHOE FITTER Inhaled Oxygen Concentration - - Weight 81.6 kg (180 lb) 12/18/2019 10:59 AM ORTHOPEDIC SHOE FITTER Height 160 cm (5' 3) 12/18/2019 10:59 AM ORTHOPEDIC SHOE FITTER Body Mass Index 31.89 12/18/2019 10:59 AM ORTHOPEDIC SHOE FITTER Plan of Treatment Health Maintenance Due Date Last Done Comments BONE DENSITY TESTING 1945 DTAP/TDAP/TD VACCINES (1 - Tdap) 1963 PNEUMOCOCCAL VACCINE 50+ (1 of 1 - PCV) 1994 ZOSTER VACCINE (1 of 2) 1994 Respiratory Syncytial Virus (RSV) Vaccine Pt: or over 60 yrs (1 - 1-dose 75+ series) 2019 COVID-19 VACCINE ( - 2023-2 5 season) 2024 DEPRESSION SCREENING 10/13/2024 INFLUENZA VACCINE (#1) 2025 HEPATITIS B VACCINE Aged Out No longe r eligible based on patient's age to complete this topic HIB VACCINE Aged Out No longer eligi ble based on patient's age to complete this topic HPV VACCINE Aged Out No longer eligi ble based on patient's age to complete this topic MENINGOCOCCAL (Group B) VACC INE SHARED DECISION-MAKING Aged Out No longer eligibl e based on patient's age to complete this topic MENINGOCOCCAL GROUPS A/C/Y/W VACCINE Aged Out No longer eligible b ased on patient's age to complete this topic Insurance [employer] [facility] MEDICARE Care Teams Cone Winder Relationship Specialty Start Date End Date Davon Fagan MD [address] [place] [address] PCP - General 03/16/19
--- OUTSIDE RECORDS SUMMARY | 2025-04-17 10:24 | XMS_ITS | Clinical Summary ---
Author Organization [facility] Care Team Providers Care Continuity Clerk Name Role Phone Unavailable Primary Care Provider [...]
--- OUTSIDE RECORDS SUMMARY | 2025-04-17 10:24 | XMS_ITS | Continuity of Care Document ---
Author Organization [facility] Address [address] [place] [address] [place] [address] Phone Care Team Providers Care Laboratory Animal Caretaker Name Role Phone Samantha Horton Unavailable Unavailable [...] Providers Copied on Encounter Office/outpat ient Visit, [facility], [address] [place] [address] [address], [place], [place], [id number], [place] tel:[phone] [facility] [place] No Information 0-201 0 Sol Denise [address] [facility] [place] , [address], [place], [place], [facility], [place]. tel:[phone] Office/outpat ient Visit, [facility], [address] [place] [address] [address], [place], [place], [id number], [place] tel:[phone] [facility] [place] No Information 7-201 0 Sol Denise [address] [facility] [place] , [address], [place], [address], [place]. tel:[phone] [facility], [address] [place] [address] [address], [place], [place], [id number], [place] tel:[phone] [facility] No Information May-2 0-201 0 Horton Samantha. [address], [place], [address], [place]. tel:[phone] [facility], [address] [address], [place], [place], [id number], [place] tel:[phone] [facility] No Information May-1 3-201 0 Horton Samantha. [address], [place], [address], [place]. tel:[phone] Referring Provider: Davon Fagan MD, [address], [place], [place], [facility]. tel:[phone] Office/outpat ient Visit, [facility], [id number] [place] [address] [address], [place], [place], [id number], [place] tel:[phone] [facility] No Information Apr-2 1-200 8 Krishnasamy Brennan. [address] [facility] [address], [place], [place], [facility], [place]. tel:[phone] Office/outpat ient Visit, [facility], [id number] [place] [address] [address], [place], [place], [id number], [place] tel:[phone] [facility] No Information Mar-3 1-200 8 Krishnasamy Brennan. [address] [facility] [address], [place], [facility], [place]. tel:[phone] [facility], [address] [address], [place], [place], [id number], [place] tel:[phone] [facility] No Information Mar-1 0-200 8 Krishnasamy Brennan. [address] [facility] [address], [place], [place], [facility], [place]. tel:[phone] Family History Family Member Type Diagnosis Age At Onset No Information Payers Payer name Insurance type Covered constitution party ID Authoriza tibrennon(s) [employer] Claims [id number] Written Refer ral Social History Type Description [...]
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
[2025-04-17 10:26] VITALS: BP 143/86; PULSE 98; RESP 18; TEMP 36.6; O2SAT 97
[2025-04-17 10:59] LABS: Hematocrit 37.9 % (37.0-47.0); Hemoglobin 12.6 g/dL (12.0-15.0); Immature Granulocyte Percent A 0.3 % (0-0.5); Lymphocytes Absolute Auto 1.45 K/mm3 (0.9-3.2); Mean Corpuscular HGB Conc 33.2 g/dl (32-36); Mean Corpuscular Hemoglobin 30.1 pg (26-34); Mean Corpuscular Volume 90.5 fl (80-100); Nucleated Red Blood Cells Absolute Auto 0.000 K/mm3 (0.0-0.012); Nucleated Red Blood Cells Perc 0.0 % (0.0-0.2); Platelet Count Result 280 k/mm3 (150-375); Red Blood Count 4.19 M/mm3 (4.2-5.4); White Blood Count 7.8 K/mm3 (4.5-10.0)
[2025-04-17 11:10] LABS: INR 1.0; Prothrombin Time 13.2 Seconds (11.1-14.7)
[2025-04-17 11:11] LABS: Partial Thromboplastin Time 32.5 Seconds (22.3-36.8)
--- OUTSIDE RECORDS SUMMARY | 2025-04-17 11:12 | XMS_ITS | Clinical Summary ---
Author Organization [facility] Care Team Providers Care Contract Recruiter Name Role Phone Unavailable Primary Care Provider [...]
--- OUTSIDE RECORDS SUMMARY | 2025-04-17 11:12 | XMS_ITS | Continuity of Care Document ---
Author Organization [facility] Address [address] [place] [address] [place] [address] Phone Care Team Providers Care Registered Nurse Nursery Name Role Phone Samantha Horton Unavailable Unavailable [...] Providers Copied on Encounter Office/outpat ient Visit, [facility], [address] [place] [address] [address], [place], [place], [id number], [place] tel:[phone] [facility] No Information 0-201 0 Sol Denise [address] [place] , [address], [place], [place], [facility], [place]. tel:[phone] Office/outpat ient Visit, [facility], [address] [place] [address] [address], [place], [place], [id number], [place] tel:[phone] [facility] [place] No Information 7-201 0 Sol Denise [address] [place] , [address], [place], [address], [place]. tel:[phone] formerly [facility], [address] [place] [address] [address], [place], [place], [id number], [place] tel:[phone] [facility] No Information May-2 0-201 0 Horton Samantha. [address], [place], [address], [place]. tel:[phone] [facility], [address], [place], [place], [id number], [place] tel:[phone] [facility] No Information May-1 3-201 0 Horton Samantha. [address], [address], [place], [address], [place]. tel:[phone] Referring Provider: Davon Fagan MD, [address], [place], [place], [facility]. tel:[phone] Office/outpat ient Visit, [facility], [id number] [place] [address] [address], [place], [place], [id number], [place] tel:[phone] [facility] No Information Apr-2 1-200 8 Krishnasamy Brennan. [address] [facility] [address], [place], [place], [facility], [place]. tel:[phone] Office/outpat ient Visit, [facility], [address] [place] [address] [address], [place], [place], [id number], [place] tel:[phone] [facility] No Information Mar-3 1-200 8 Krishnasamy Brennan. [address] [facility] [address], [place], [place], [facility], [place]. tel:[phone] [facility], [address], [place], [place], [id number], [place] tel:[phone] [facility] No Information Mar-1 0-200 8 Krishnasamy Brennan. [address] [facility] [address], [place], [place], [facility], [place]. tel:[phone] Family History Family Member Type Diagnosis Age At Onset No Information Payers Payer name Insurance type Covered green party ID Authoriza tibrennon(s) [employer] [id number] Written Refer ral Social History Type Description [...]
--- OUTSIDE RECORDS SUMMARY | 2025-04-17 11:12 | XMS_ITS | Clinical Summary ---
Author Organization [facility] Address [address] [place] [address] Care Team Providers Care Logging Worker Name Role Phone Davon Fagan MD Primary Care Provider [phone] Source Comments [facility]non-owned Affiliates and Associated Physician Practices is amultiple site organization consisting of ambulatory clinics and hospital sitesin [place], [place], [place] and [place]. This disclosure is being madepursuant to the Care Everywhere program and may not contain all information available regarding this patient. Last updated 18.[facility] Allergies No known active allergies Medications * [...] Comments Blood Pressure 106/62 12/18/2019 10:59 AM CHANGE ROOM ATTENDANT Pulse 81 12/18/2019 10:59 AM CHANGE ROOM ATTENDANT Temperature 37.3 C (99.1 F) 12/18/2019 10:59 AM CHANGE ROOM ATTENDANT Respiratory Rate 17 12/18/2019 10:59 AM CHANGE ROOM ATTENDANT Oxygen Saturation 95% 12/18/2019 10:59 AM CHANGE ROOM ATTENDANT Inhaled Oxygen Concentration - - Weight 81.6 kg (180 lb) 12/18/2019 10:59 AM CHANGE ROOM ATTENDANT Height 160 cm (5' 3) 12/18/2019 10:59 AM CHANGE ROOM ATTENDANT Body Mass Index 31.89 12/18/2019 10:59 AM CHANGE ROOM ATTENDANT Plan of Treatment Health Maintenance Due Date [...] to complete this topic Insurance [employer] MEDICARE Care Teams Logging Worker Relationship Specialty Start Date End Date Davon Fagan MD [address] [place] [address] PCP - General 03/16/19
[2025-04-17 11:13] LABS: Alanine Aminotransferase 20 U/L (6-35); Albumin Level 4.0 g/dL (3.5-5.1); Alkaline Phosphatase 60 U/L (38-126); Anion Gap 9 mmol/L (4-12); Aspartate Amino Transferase 31 U/L (14-36); Bilirubin,Total 0.6 mg/dL (0.2-1.3); Blood Urea Nitrogen 14 mg/dL (7-17); Calcium 9.4 mg/dL (8.4-10.2); Carbon Dioxide 27 mmol/L (22-30); Chloride 102 mmol/L (98-107); Estimated Glomerular Filt Rate > 60; Glucose 101 mg/dL (65-110); Potassium 3.5 mmol/L (3.4-5.0); Sodium 138 mmol/L (137-145); Total Protein 7.1 g/dL (6.3-8.2)
[2025-04-17 11:23] VITALS: BP 110/86; PULSE 88; RESP 15; O2SAT 95
[2025-04-17] MEDS: BENZONATATE 100 MG CAPSULE 200 MG PO (11:24)
[2025-04-17 11:25] LABS: NT Pro B Type Natriuretic Pept 92 pg/mL (19.9-100); Troponin I < 0.012 ng/mL (0.000-0.034)
[2025-04-17 11:35] VITALS: PULSE 81; RESP 23
[2025-04-17] MEDS: IPRATROPIUM 0.5 MG/ALBUTEROL SULFATE 2.5 MG AMPUL.NEB 3 ML INHALATION (11:39)
[2025-04-17 11:43] VITALS: PULSE 83; RESP 20
[2025-04-17 11:50] LABS: Influenza A QL RT-PCR Negative (Negative); Influenza B QL RT-PCR Negative (Negative); RSV RNA, RT-PCR Negative (Negative); SARS-CoV-2 RNA PCR Negative (Negative)
--- NOTE | 2025-04-17 12:29 | ED.GENADULT ---
HPI - General Adult General Chief complaint: Shortness of Breath/Dyspnea Stated complaint: shortness of breath Time Seen by Provider: 04/17/25 11:00 History of Present Illness HPI narrative: Patient is a 79-year-old female who presents emergency department chief complaint of cough and difficulty breathing patient reports she has history of interstitial lung disease reports that she has had cough has been nonproductive reports that she has had some increasing shortness of breath and reports her nebulizer are not helping Related Data Home Medications ?Medication ?Instructions ?Recorded ?Confirmed ?Last Taken ?Type montelukast 10 mg tablet 10 mg PO DAILY 07/02/22 03/31/25 Unknown History (Singulair) buspirone 5 mg tablet 5 mg PO BID 04/26/24 03/31/25 Unknown History Allergies Allergy/AdvReac Type Severity Reaction Status Date / Time No Known Allergies Allergy Mild Verified 03/31/25 10:40 Review of Systems Review of Systems: A 10 system review of systems was completed on the patient and is negative except for what is stated in the HPI. Nursing and ancillary documentation was reviewed. PMFSH Past Medical History Medical History Hiatal hernia Mixed hyperlipidemia Surgical History Surgical History History of esophagogastroduodenoscopy (EGD) History of cholecystectomy Family History Family History Father Hypertension Family history of chronic obstructive pulmonary disease Family history of coronary artery disease Family history of cardiovascular disease Family history of emphysema Mother Hypertension Family history of chronic obstructive pulmonary disease Family history of coronary artery disease Social History Social History Smoking status: Never smoker Second hand tobacco smoke exposure: No Alcohol intake: never Substance use: never Substance use type: does not use Living arrangements: with family Occupation/Education: retired Gender identity (if verbalized by the patient): Female Sexual Orientation (if Verbalized by the Patient): Straight or Heterosexual Spiritual care concerns: No Exam Narrative: GENERAL: Well-appearing, well-nourished, and in no acute distress. HEAD: Normocephalic, atraumatic. EYES: PERRLA and EOMI. ENT: Nares clear, no rhinorrhea or epistaxis. Mucous membranes moist. NECK: Supple. CHEST: Scattered rhonchi to auscultation. No respiratory distress. HEART: Regular rate and rhythm. No murmur heard. Normal peripheral pulses. ABDOMEN: Soft, nontender, nondistended, normal active bowel sounds. EXTREMITIES: Normal range of motion. No edema. SKIN: Warm, dry, no rash. NEURO: No focal deficits. Alert and oriented x3. PSYCH: Normal mood and affect. Course Vital Signs Vital signs: Vital Signs Temperature 36.6 C 04/17/25 10:26 Pulse Rate 98 04/17/25 10:26 Respiratory Rate 18 04/17/25 10:26 Blood Pressure 143/86 H 04/17/25 10:26 Pulse Oximetry 97 04/17/25 10:26 Oxygen Delivery Room Air 04/17/25 10:26 Temperature 36.6 C 04/17/25 10:26 Pulse Rate 83 04/17/25 11:43 Respiratory Rate 20 04/17/25 11:43 Blood Pressure 110/86 04/17/25 11:23 Pulse Oximetry 95 04/17/25 11:23 Oxygen Delivery Room Air 04/17/25 10:26 Medical Decision Making MDM Narrative Medical decision making narrative: Differential diagnosis includes pneumonia, upper respiratory infection, Exacerbation of interstitial lung disease EKG showed no acute ischemic changes laboratory studies showed normal CBC CMP was within normal limits troponin was negative BNP was negative COVID flu RSV were negative Chest x-ray is redemonstrated interstitial lung disease Patient was given steroids breathing treatment and antitussive medications feeling much better patient was started on doxycycline and a steroid pulse Vital Signs Vital Signs: Vital Signs Temperature 36.6 C 04/17/25 10:26 Pulse Rate 98 04/17/25 10:26 Respiratory Rate 18 04/17/25 10:26 Blood Pressure 143/86 H 04/17/25 10:26 Pulse Oximetry 97 04/17/25 10:26 Oxygen Delivery Room Air 04/17/25 10:26 Temperature 36.6 C 04/17/25 10:26 Pulse Rate 83 04/17/25 11:43 Respiratory Rate 20 04/17/25 11:43 Blood Pressure 110/86 04/17/25 11:23 Pulse Oximetry 95 04/17/25 11:23 Oxygen Delivery Room Air 04/17/25 10:26 Lab Data 04/17/25 10:52 04/17/25 10:52 Labs: Lab Results 04/17/25 04/17/25 Range/Units 10:52 11:09 WBC 7.8 (4.5-10.0) K/mm3 RBC 4.19 L (4.2-5.4) M/mm3 Hgb 12.6 (12.0-15.0) g/dL Hct 37.9 (37.0-47.0) % MCV 90.5 (80-100) fl MCH 30.1 (26-34) pg MCHC 33.2 (32-36) g/dl RDW 14.0 (11.5-14.5) % Plt Count 280 (150-375) k/mm3 MPV 8.7 (7.4-10.4) fl Immature Gran % (Auto) 0.3 (0-0.5) % Neut % (Auto) 63.3 (45.5-73.1) % Lymph % (Auto) 18.5 (18.3-44.2) % Denali % (Auto) 10.6 H (2.6-8.5) % Eos % (Auto) 6.1 H (0-4.4) % Baso % (Auto) 1.2 (0.2-1.2) % Lymph # (Auto) 1.45 (0.9-3.2) K/mm3 Denali # (Auto) 0.8 H (0.1-0.6) K/mm3 Eos # (Auto) 0.5 H (0-0.3) K/mm3 Baso # (Auto) 0.1 (0.0-0.1) K/mm3 Abs Immat Gran (auto) 0.02 (0.00-0.031) K/mm3 Absolute Neuts (auto) 5.0 (1.3-6.7) K/mm3 Absolute Nucleated RBC 0.000 (0.0-0.012) K/mm3 Nucleated RBC % 0.0 (0.0-0.2) % PT 13.2 (11.1-14.7) Seconds INR 1.0 APTT 32.5 (22.3-36.8) Seconds Sodium 138 (137-145) mmol/L Potassium 3.5 (3.4-5.0) mmol/L Chloride 102 (98-107) mmol/L Carbon Dioxide 27 (22-30) mmol/L Anion Gap 9 (4-12) mmol/L BUN 14 (7-17) mg/dL Creatinine 0.61 L (0.7-1.0) mg/dL Estim Creat Clear Calc Not Reportable Estimated GFR > 60 (59 - ) Glucose 101 (65-110) mg/dL Calcium 9.4 (8.4-10.2) mg/dL Total Bilirubin 0.6 (0.2-1.3) mg/dL AST 31 (14-36) U/L ALT 20 (6-35) U/L Alkaline Phosphatase 60 (38-126) U/L Troponin I < 0.012 (0.000-0.034) ng/mL NT-Pro-B Natriuret Pep 92 (19.9-100) pg/mL Total Protein 7.1 (6.3-8.2) g/dL Albumin 4.0 (3.5-5.1) g/dL Influenza A (RT-PCR) Negative (Negative) Influenza B (RT-PCR) Negative (Negative) RSV (RT-PCR) Negative (Negative) SARS-CoV-2 RNA (RT-PCR) Negative (Negative) Discharge Plan Discharge Clinical Impression: Interstitial lung disease, Acute upper respiratory infection Patient Disposition: Home Condition: Stable Instructions: Antibiotic Form, Upper Respiratory Infection (ED), Chronic Bronchitis (ED) Patient Language: Fijian Prescriptions: New prednisone 20 mg tablet 40 mg PO DAILY 5 Days Qty: 10 0RF benzonatate 200 mg capsule 200 mg PO TID PRN (Reason: cough) Qty: 21 0RF doxycycline hyclate 100 mg tablet 100 mg PO BID Qty: 14 0RF No Action montelukast [Singulair] 10 mg tablet 10 mg PO DAILY lorazepam 0.5 mg tablet 0.5 mg PO DAILY PRN (Reason: anxiety) Qty: 30 0RF buspirone 5 mg tablet 5 mg PO BID albuterol sulfate 90 mcg/actuation HFA aerosol inhaler 1 inhalation INHALATION Q4H PRN (Reason: shortness of breath) Qty: 8.5 3RF Symbicort 160-4.5 mcg/actuation HFA aerosol inhaler 2 puff INHALATION Q12H Qty: 10.2 2RF pantoprazole 40 mg tablet,delayed release (DR/EC) 40 mg PO QAM Qty: 90 2RF levothyroxine 75 mcg tablet See Rx Instructions .ROUTE .COMPLEX Qty: 90 3RF Dose Instruction: TAKE 1 TABLET BY MOUTH EVERY DAY Rx Instructions: TAKE 1 TABLET BY MOUTH EVERY DAY duloxetine 30 mg capsule,delayed release(DR/EC) 30 mg PO DAILY Qty: 90 1RF losartan 100 mg tablet See Rx Instructions .ROUTE .COMPLEX Qty: 90 2RF Dose Instruction: TAKE 1 TABLET BY MOUTH EVERY DAY Rx Instructions: TAKE 1 TABLET BY MOUTH EVERY DAY chlorthalidone 25 mg tablet 25 mg PO DAILY Qty: 90 2RF Follow-up/Referrals: Davon Fagan MD [Primary Care Provider] - Time of Disposition: 12:32
--- NOTE | 2025-04-17 12:29 | PC.NURSE ---
Dr. Vigil at bedside reassing pt. Pt. states she is breathing much better.
[2025-04-17 12:56] VITALS: BP 120/70; PULSE 65; RESP 16; O2SAT 98
== END 2025-04-17 12:58 | disposition home or self-care (01) ==
PROVIDERS: Emergency Medicine; Emergency Provider Emergency Medicine; PCP Family Medicine
DX: J84.9 Interstitial pulmonary disease, unspecified (principal); J22 Unspecified acute lower respiratory infection; E78.2 Mixed hyperlipidemia; Z20.822 Contact with and (suspected) exposure to COVID-19
CPT/HCPCS: 36415; 71045; 80053; 83880; 84484; 85025; 85610; 85730; 87637; 93005; 94640; 96374; 99284; A9270; J2919

== ENCOUNTER 2025-10-09 14:48 | Emergency (ER) | payer OTHER, SELFPAY ==
[2025-10-09 15:01] VITALS: BP 110/57; PULSE 74; RESP 20; TEMP 36.8; O2SAT 100
== END 2025-10-09 15:01 | disposition left against medical advice (07) ==
PROVIDERS: PCP Family Medicine
DX: Z53.21 Procedure and treatment not carried out due to patient leaving prior to being seen by health care provider (principal)
CPT/HCPCS: 99199